=== PATIENT | male | born 1960 | race Caucasian/White ===

== ENCOUNTER 2020-04-28 14:30 | Emergency (ER) | payer OTHER, SELFPAY ==
--- NOTE | ~2020-04-28 | CT_ITS ---
EXAMINATION: CT BRAIN W/O DATE: 04/28/2020 16:52 INDICATION: Status post fall. Trauma to the back of head. TECHNIQUE: Computed tomography (CT) of the head was performed without intravenous contrast. The dose- length product was 681.00 mGy-cm. The mA was adjusted according to patient size. Iterative reconstruc tion technique was employed. COMPARISON: No prior studies for comparison. FINDINGS: Normal brain parenchymal volume for age. Normal gomez-white differentiation. No acute intrac ranial hemorrhage, infarction, mass or mass effect. No ventriculomegaly or midline shift. Midline sagittal images demonstrate a normal corpus callosum, c raniovertebral junction and sella turcica. Basilar cisterns are patent. Paranasal sinuses and mastoids are pneumatized. No depressed skull fractures. IMPRESSION: 1. No acute intracranial abnormality. Reviewed, dictated and finalized at location A.
[2020-04-28 14:47] VITALS: BP 138/80; PULSE 87; RESP 18; TEMP 36.7; O2SAT 99
--- NOTE | 2020-04-28 17:35 | ED.HEATRA ---
HPI - Head Injury General Chief complaint: Head Injury Stated complaint: fall/head injury Time Seen by Provider: 04/28/20 15:59 Source: patient Mode of arrival: ambulatory Limitations: no limitations History of Present Illness HPI Narrative: Patient presents for his examination after falling while at work and in the posterior aspect of his head at approximately 1 AM. Patient states that after falling he felt dazed for a bit but then was able to get up and continue with his day. Patient states that he then went home and slept for most of the day. Patient states when he woke up this morning he had pain headache but felt very fuzzy in his thinking and felt a sensation that he cannot describe in the posterior aspect appreciated. Patient called his job and was told that he needed to come to the emergency department for head examination to make sure that he did not have any serious injury. Patient states that he has is very light sensitive but denies changes to his vision. Patient states initially he did feel some nausea but he has not had any vomiting. He also denies any bleeding from his orifices. Related Data Home Medications Medication Instructions Recorded Confirmed albuterol sulfate [ProAir HFA] 90 mcg INHALATION 04/28/20 gabapentin 600 mg PO 04/28/20 rosuvastatin 5 mg PO 04/28/20 rosuvastatin [Crestor] 5 mg PO 04/28/20 Allergies Allergy/AdvReac Type Severity Reaction Status Date / Time No Known Allergies Allergy Verified 04/28/20 14:50 Review of Systems Review of Systems: Narrative: CONSTITUTIONAL: Denies fever, chills, or sweats. EYES: Denies visual changes, redness, or discharge. ENT: Denies rhinorrhea, congestion, sore throat, or otalgia. CARDIOVASCULAR: Denies chest pain, palpitations, or edema. RESPIRATORY: Denies cough or dyspnea. GASTROINTESTINAL: Denies abdominal pain, nausea, vomiting, or diarrhea. GENITOURINARY: Denies dysuria or hematuria. SKIN: Denies rash or itching. MUSCULOSKELETAL: Denies back pain, joint pain, or myalgia. NEUROLOGIC: Reports headache and photophobia, denies numbness, dizziness, or weakness. PSYCHIATRIC: Denies anxiety or depression. [facility] Past Medical History Medical History (Updated 04/28/20 @ 17:42 by Marika Zabala PA-C) Hypercholesterolemia Neuropathy Social History Social History Smoking status: Never smoker Alcohol intake: never Exam Narrative: Exam Narrative: GENERAL: Well-appearing, well-nourished, and in no acute distress. HEAD: Normocephalic, atraumatic. EYES: PERRLA and EOMI. no hyphema ENT: Nares clear, no rhinorrhea or epistaxis. Mucous membranes moist. Oropharynx without tonsillar hypertrophy exudate or other lesions. Bilateral TMs pearly gomez nonbulging no hemotympanum NECK: Supple. No adenopathy or masses. CHEST: Clear to auscultation. No respiratory distress. No wheezes rales or rhonchi HEART: Regular rate and rhythm. EXTREMITIES: Normal range of motion. No edema. SKIN: Warm, dry, no rash. NEURO: No focal deficits. Alert and oriented x3. PSYCH: Normal mood and affect. Course Vital Signs Vital signs: Vital Signs Temperature 98.1 F 04/28/20 14:47 Pulse Rate 87 04/28/20 14:47 Respiratory Rate 18 04/28/20 14:47 Blood Pressure 138/80 04/28/20 14:47 Pulse Oximetry 99 04/28/20 14:47 Temperature 98.1 F 04/28/20 14:47 Pulse Rate 65 04/28/20 17:59 Respiratory Rate 18 04/28/20 17:59 Blood Pressure 114/78 04/28/20 17:59 Pulse Oximetry 97 04/28/20 17:59 MDM - Head Injury MDM Narrative Medical decision making narrative: Discussed with patient that since it has been over 36 hours since his injury his symptoms are likely result of concussion. Patient is concerned for further etiology and would like to have CT scan to rule out. Discussed risk of radiation exposure and patient understands and would like to proceed with CT head. CT head negative. Patient discussed head precautions, the need to follow-up
[2020-04-28 17:59] VITALS: BP 114/78; PULSE 65; RESP 18; O2SAT 97
== END 2020-04-28 18:01 | disposition home or self-care (01) ==
PROVIDERS: Emergency Provider Emergency Medicine; PCP Family Medicine
DX: S06.0X0A Concussion without loss of consciousness, initial encounter (principal); E78.00 Pure hypercholesterolemia, unspecified; G62.9 Polyneuropathy, unspecified; W19.XXXA Unspecified fall, initial encounter
CPT/HCPCS: 70450; 99284

== ENCOUNTER 2020-05-25 14:25 | Emergency (ER) | payer OTHER, SELFPAY ==
--- NOTE | ~2020-05-25 | CT_ITS ---
EXAMINATION: CT abdomen pelvis w con DATE: 05/25/2020 16:14 INDICATION: Nausea, vomiting and chills TECHNIQUE: Computed tomography (CT) of the abdomen and pelvis was performed with 100 cc Omnipaque 350 intravenous contrast. The dose-length product was 1548.91 mGy-cm. Automated exposure control and ite rative reconstruction technique were employed. COMPARISON: CT dated 03/10/2013. FINDINGS: Lung bases unremarkable. Heart size normal. No significant pleural or pericardial effusion. Fatty infiltration of the liver. The spleen, pancreas, right adrenal gland are unremarkable. Stable 2 .3 cm right adrenal mass, likely benign adenoma. Gallbladder is present. There are nonobstructing meka ateral renal stones. There are small subcentimeter hypodensities of both kidneys, most likely cysts. There is a 7 mm distal right ureteral stone with mild right hydronephrosis. Bladder wall is mildly pr ominent, although not well distended. Nonobstructive bowel gas pattern. Normal appendix. No abnormal pelvic masses or fluid collections. Prostate gland mildly prominent. IMPRESSION: 1. 7 mm distal right ureteral stone with mild hydronephrosis. 2: Nonobstructing bilateral nephrolithiasis. 3: Mildly thickened bladder wall which may be due to underdistention, outlet obstruction or cystitis . Reviewed, dictated and finalized at location A. IMPRESSION: 1. 7 mm distal right ureteral stone with mild hydronephrosis. 2: Nonobstructing bilateral nephrolithiasis. 3: Mildly thickened bladder wall which may be due to underdistention, outlet o bstruction or cystitis.
[2020-05-25 15:14] VITALS: BP 133/82; PULSE 104; RESP 14; TEMP 37.1; O2SAT 100
[2020-05-25 15:33] LABS: Basophils Percent Auto 0.2 % (0.2-1.2); Eosinophils Absolute Auto 0.1 K/mm3 (0-0.3); Eosinophils Percent Auto 0.3 % (0-4.4); Hematocrit 44.7 % (42.0-52.0); Hemoglobin 14.9 g/dL (14.0-18.0); Immature Granulocyte Absolute 0.06 K/mm3 (0.00-0.031); Immature Granulocyte Percent A 0.4 % (0-0.5); Lymphocytes Absolute Auto 0.83 K/mm3 (0.9-3.2); Lymphocytes Percent Auto 4.9 % (18.3-44.2); Mean Corpuscular HGB Conc 33.3 g/dl (32-36); Mean Corpuscular Hemoglobin 30.4 pg (26-34); Mean Corpuscular Volume 91.2 fl (80-100); Mean Platelet Volume 9.5 fl (7.4-10.4); Neutrophils Absolute Auto 15.1 K/mm3 (1.3-6.7); Neutrophils Percent Auto 88.2 % (45.5-73.1); Platelet Count Result 259 k/mm3 (150-375); White Blood Count 17.1 K/mm3 (4.5-10.0)
[2020-05-25 15:45] LABS: Alanine Aminotransferase 42 U/L (4-50); Albumin Level 5.2 g/dL (3.5-5.1); Alkaline Phosphatase 79 U/L (38-126); Anion Gap 13 mmol/L (8-16); Aspartate Amino Transferase 33 U/L (17-59); Blood Urea Nitrogen 15 mg/dL (9-20); Calcium 9.9 mg/dL (8.4-10.2); Carbon Dioxide 26 mmol/L (22-30); Chloride 100 mmol/L (98-107); Estimated CRCL calculation 99 ml/min; Estimated Glomerular Filt Rate > 60; Glucose 98 mg/dL (75-110); Lipase 247 U/L (23-300); Potassium 4.1 mmol/L (3.4-5.0); Sodium 139 mmol/L (137-145)
[2020-05-25] MEDS: ONDANSETRON INJ 4 MG/2 ML VIAL IV PUSH (16:04)
[2020-05-25 16:36] LABS: Add Urine Microscopic? NO; Appearance Urine Clear (Clear); Bilirubin Urine Negative (Negative); Blood Urine Negative (Negative); Color Urine Yellow (Yellow); Glucose Urine UA Negative (Negative); Ketones Urine Negative (Negative); Leukocyte Esterase Ur Negative LEU/UL (Negative); Mucus Urine Rare /lpf; Nitrate Urine Negative (Negative); Protein Urine Negative (Negative); Specific Grav Ur 1.017 (1.001-1.035); Urobilinogen Urine Negative mg/dL (<2.0); WBC Urine 0-3 /hpf
--- NOTE | 2020-05-25 16:44 | ED.NAVMDI ---
HPI - Nausea/Vomiting/Diarrhea General Chief complaint: Nausea/Vomiting/Diarrhea Stated complaint: Im sick, I want tested for COVID Time Seen by Provider: 05/25/20 15:37 Source: patient Mode of arrival: ambulatory Limitations: no limitations History of Present Illness HPI Narrative: This is a 59 year old male that presents to the ER for episode of vomiting today. Reports an episode of diarrhea yesterday. Reports today he feels generally unwell and had an episode of vomiting. Reports some vague crampy abdominal pain. Denies fever, dysuria, hematuria. Related Data Home Medications Medication Instructions Recorded Confirmed albuterol sulfate [ProAir HFA] 90 mcg INHALATION 04/28/20 gabapentin 600 mg PO 04/28/20 rosuvastatin 5 mg PO 04/28/20 rosuvastatin [Crestor] 5 mg PO 04/28/20 Allergies Allergy/AdvReac Type Severity Reaction Status Date / Time No Known Allergies Allergy Verified 05/25/20 15:34 Review of Systems Review of Systems: Narrative: CONSTITUTIONAL: Denies fever GASTROINTESTINAL: Reports abdominal pain, nausea, vomiting, and diarrhea. GENITOURINARY: Denies dysuria or hematuria. All systems reviewed & are unremarkable except as noted in HPI and below PMFSH Past Medical History Medical History (Updated 05/25/20 @ 17:00 by Carole Viera PA-C) Hypercholesterolemia Neuropathy Social History Social History Smoking status: Never smoker Alcohol intake: never Gender identity (if verbalized by the patient): Male Exam Narrative: Exam Narrative: GENERAL: Well-appearing, well-nourished, and in no acute distress. HEAD: Normocephalic, atraumatic. EYES: EOMI. CHEST: Clear to auscultation. No respiratory distress. No wheezes rales or rhonchi HEART: Regular rate and rhythm. No murmur heard. Normal peripheral pulses. ABDOMEN: Soft, nontender, nondistended, normal active bowel sounds. EXTREMITIES: Normal range of motion. No edema. SKIN: Warm, dry, no rash. NEURO: No focal deficits. Alert and oriented x3. PSYCH: Normal mood and affect Course Consultations Consultation #1: Spoke with urology, Dr. Angel about workup who would like patient to be given a dose of Toradol and sent home on Flomax. Date: 05/25/20 Time: 19:13 Vital Signs Vital signs: Vital Signs Temperature 98.7 F 05/25/20 15:14 Pulse Rate 104 H 05/25/20 15:14 Respiratory Rate 14 05/25/20 15:14 Blood Pressure 133/82 05/25/20 15:14 Pulse Oximetry 100 05/25/20 15:14 Temperature 98.7 F 05/25/20 15:14 Pulse Rate 93 05/25/20 18:51 Respiratory Rate 20 05/25/20 18:51 Blood Pressure 123/82 05/25/20 18:51 Pulse Oximetry 98 05/25/20 18:51 MDM - Nausea/Vomiting/Diarrhea MDM Narrative Medical decision making narrative: Patient presents to the emergency department for vomiting and abdominal discomfort. He is afebrile and nontoxic-appearing. Mildly tachycardic upon arrival, this improved without intervention. CBC with leukocytosis to 7.1. Lactic acid is normal. Kidney function is normal. UA with 3-5 red blood cells, no evidence of infection. CT scan of the abdomen and pelvis shows a 7 mm distal right ureteral stone with mild hydronephrosis. Patient was updated on case findings. Spoke with urology, Dr. Angel about workup who would like patient to be given a dose of Toradol and sent home on Flomax. He will follow-up with urology outpatient. Patient is stable and felt appropriate for further outpatient evaluation. He is to follow-up with urology. He was given warnings to return to the ER Lab Data Attestation: I reviewed the patient's lab results. Result diagrams: 05/25/20 15:26 05/25/20 15:26 Labs: Lab Results 05/25/20 05/25/20 05/25/20 Range/Units 15:26 15:26 16:00 WBC 17.1 H (4.5-10.0) K/mm3 RBC 4.90 (4.6-6.20) M/mm3 Hgb 14.9 (14.0-18.0) g/dL Hct 44.7 (42.0-52.0) % MCV 91.2 (80-100) fl MCH 30.4 (26-34) pg MCHC 33.3 (32-36) g/d
[2020-05-25 17:26] VITALS: BP 137/93; PULSE 100; RESP 20; O2SAT 95
[2020-05-25 17:41] LABS: Lactic Acid Reflex 1.8 mmol/L (0.7-2.1)
[2020-05-25 18:51] VITALS: BP 123/82; PULSE 93; RESP 20; O2SAT 98
[2020-05-25] MEDS: KETOROLAC 15 MG/ML VIAL (*BKC) IV PUSH (19:22)
[2020-05-25 19:26] VITALS: BP 124/88; PULSE 90; RESP 20; O2SAT 97
== END 2020-05-25 19:27 | disposition home or self-care (01) ==
PROVIDERS: Physician Assistant; Emergency Provider Family Medicine; PCP Family Medicine
DX: N13.2 Hydronephrosis with renal and ureteral calculous obstruction (principal); E78.00 Pure hypercholesterolemia, unspecified; G62.9 Polyneuropathy, unspecified
CPT/HCPCS: 36415; 74177; 80053; 81003; 83605; 83690; 85025; 96374; 96375; 99284; J1885; J2405; Q9967

== ENCOUNTER 2021-03-08 21:47 | Emergency (ER) | payer OTHER, SELFPAY ==
--- NOTE | ~2021-03-08 | XR_ITS ---
EXAMINATION: XR knee RT 3V EXAM DATE: 03/08/2021 22:30 INDICATION: Initial encounter following injury, with pain of the right knee. TECHNIQUE: Three projections of the right knee. There is no prior study for comparison. FINDINGS: No evidence osteochondral defect or joint body in the right knee joint. There are no acu te fractures identified. There is large amount of anterior soft tissue swelling anteriorly. Additiona lly, focal contained appearing region anterior to the patella measuring up to about 3 cm in thickness which could be hematoma within a bursa or the subcutaneous fat. No evidence of joint effusion. There is overall moderate primary osteoarthritis. Patella has normal position. IMPRESSION: 1. No acute fracture. 2. Severe anterior swelling, likely hematoma. 3. Generalized subcutaneous edema anteriorly. Reviewed, dictated and finalized at location A.
[2021-03-08 21:51] VITALS: BP 118/66; PULSE 90; RESP 20; TEMP 36.9; O2SAT 97
--- NOTE | 2021-03-08 22:20 | ED.LOWEXIN ---
HPI - Extremity Injury (Lower) General Chief Complaint: Extremity Injury, Lower Stated Complaint: right knee pain Time Seen by Provider: 03/08/21 22:08 History of Present Illness HPI Narrative: 60 yo male presnets to the ED for right knee pain. He slipped and fell down 3 stairs. He struck the lateral portion of the right knee. He had minimal pain at first and his knee felt normal. Since that time the knee has become very swollen and he has significantly reduced ROM. He denies any additional pain or injury. Related Data Home Medications Medication Instructions Recorded Confirmed albuterol sulfate [ProAir HFA] 90 mcg INHALATION 04/28/20 gabapentin 600 mg PO 04/28/20 rosuvastatin 5 mg PO 04/28/20 rosuvastatin [Crestor] 5 mg PO 04/28/20 Allergies Allergy/AdvReac Type Severity Reaction Status Date / Time No Known Allergies Allergy Verified 05/25/20 15:34 Review of Systems Review of Systems: All systems reviewed & are unremarkable except as noted in HPI and below Constitutional: Constitutional: Denies fever(s) Cardiovascular: Cardiovascular: Denies chest pain Musculoskeletal: Musculoskeletal: Denies back pain Neurologic: Denies headache(s), Denies numbness and Denies weakness PMFSH Past Medical History Medical History Hypercholesterolemia Neuropathy Social History Social History Smoking status: Never smoker Alcohol intake: never Gender identity (if verbalized by the patient): Male Exam Const: General: healthy appearing, no acute distress and alert Orientation/consciousness: patient oriented x3 HENMT: Head: normal to inspection Cardio: Other: 2+ right DP Skin: General skin exam: normal color Neuro: General: patient oriented x3, moves all extremities, no focal motor deficits and CN's II-XI intact bilaterally Speech: normal speech Extrem: Other: Right knee swelling. No deformity. Mild tenderness. Normal color Course Vital Signs Vital signs: Vital Signs Temperature 36.9 C 03/08/21 21:51 Pulse Rate 90 03/08/21 21:51 Respiratory Rate 20 03/08/21 21:51 Blood Pressure 118/66 03/08/21 21:51 Pulse Oximetry 97 03/08/21 21:51 Temperature 36.9 C 03/08/21 21:51 Pulse Rate 90 03/08/21 21:51 Respiratory Rate 20 03/08/21 21:51 Blood Pressure 118/66 03/08/21 21:51 Pulse Oximetry 97 03/08/21 21:51 MDM - Extremity Injury (Lower) MDM Narrative Medical decision making narrative: He appears to have a large fluid collection outside of the knee joint. Probably hematoma. No acute knee injury. Imaging Data My impression: no fracture on knee x-ray Discharge Plan Discharge Clinical Impression: Contusion of knee, right Qualifiers: Encounter type: initial encounter Qualified Code(s): S80.01XA - Contusion of right knee, initial encounter Patient Disposition: Home, Self-Care Condition: Stable Instructions: Knee Pain (ED), Hematoma (ED) Prescriptions: No Action gabapentin 600 mg tablet 600 mg PO RF: 0 albuterol sulfate [ProAir HFA] 90 mcg/actuation HFA aerosol inhaler 90 mcg INHALATION RF: 0 rosuvastatin [Crestor] 5 mg tablet 5 mg PO RF: 0 rosuvastatin 5 mg tablet 5 mg PO RF: 0 tamsulosin 0.4 mg capsule 0.4 mg PO DAILY 7 Days Qty: 7 RF: 0 ketorolac 10 mg tablet 10 mg PO Q6H PRN (Reason: pain) 5 Days Qty: 20 RF: 0 Follow-up/Referrals: Harrison Nguyễn MD [Primary Care Provider] -
== END 2021-03-08 23:31 | disposition home or self-care (01) ==
PROVIDERS: Emergency Provider Emergency Medicine; PCP Family Medicine
DX: S80.01XA Contusion of right knee, initial encounter (principal); E78.00 Pure hypercholesterolemia, unspecified; G62.9 Polyneuropathy, unspecified; W10.9XXA Fall (on) (from) unspecified stairs and steps, initial encounter
CPT/HCPCS: 73562; 99283

== ENCOUNTER 2024-01-27 08:44 | Outpatient (CLI) | payer OTHER, MEDICARE, SELFPAY ==
--- NOTE | 2024-02-08 17:21 | WPDHOMESLEEP ---
Sleep Study - Home Unattended Date of Study: 01/27/24 Ordering Provider: GLADYS Ricketts Interpreting Provider: Coreen Andres, DO Home Sleep Study Type: Watch PAT Height: 1.91 m Weight: 127.006 kg Body Mass Index: 34.9 Neck Circumference (inches): 18.5 [place]: 13 Reason for Sleep Study Snoring, daytime hypersomnia Sleep History The patient is a 63-year-old male with asthma, hyperlipidemia, osteoarthritis, peripheral neuropathy, erectile dysfunction and obesity that had a sleep study ordered by his primary care for evaluation of sleep apnea. The patient rarely awakens from sleep short of breath. He denies awakening at night with heartburn, belching or cough. He frequently snores but it is never loud enough that others complain. He frequently has trouble sleeping when he has a cold. He rarely wakes up gasping for air throughout the night. He rarely has breathing problems at night observed by himself or others. He denies sweating excessively at night. He denies having heart palpitations or irregular heartbeats during the night. He occasionally falls asleep during the day but rarely falls asleep while driving. He denies sleep paralysis, cataplexy and hypnagogic / hypnopompic hallucinations. He denies having trouble at school or work due to sleepiness. He denies feeling afraid of going to sleep. He denies having nightmares. He rarely remembers his dreams. He occasionally has thoughts racing through his mind. He denies feeling sad or depressed. He rarely has anxiety. He denies having muscular tension. He occasionally notices parts of his body jerk. He denies kicking during the night. He frequently has crawling and aching feelings in his legs and occasionally has leg pain during the night. He denies grinding his teeth during sleep and denies awakening with morning jaw pain. He is frequently bothered by pain during the day and occasionally awakened by pain during the night. He occasionally wakes up feeling stiff in the morning. He denies waking up with sore or achy muscles. He denies waking up with pain in the neck, spine and other joints. He goes to bed at 10:00 p.m. on both weekdays and weekends. It takes him 15 minutes to fall asleep. He wakes up 1-3 times throughout the night to urinate and is able to fall back asleep within 5 minutes. He wakes up at 6:00 a.m. on weekdays. He wakes up between 6-8 a.m. on the weekends. He typically gets 6-7 hours of sleep per night. He does not stay in bed after waking up in the morning. He currently lives with his . He will consume caffeinated beverages within 2 hours of bedtime. He denies engaging in physical exercise before bedtime. He will watch television before falling asleep. He denies taking naps in the afternoon or the evening. He consumes 3-6 caffeinated beverages per day. He denies tobacco and recreational drug use. He occasionally consumes alcoholic beverages. [facility] Past Medical History Medical History Asthma, exercise induced Hypercholesterolemia Morphea Osteoarthritis Peripheral neuropathic pain Surgical History Surgical History Hx of palate surgery excision polyp left posterior 04/04 Family History Family History Father Alcoholism Mother Diabetes mellitus Dementia Grandparent Diabetes mellitus Mental illness in member of household Social History Social History Smoking status: Never smoker Alcohol intake: current Drinks per week: 0 Alcohol use details: social Substance use: never Lack of Transportation: No Lack of Food: Never True Current Housing: I Have Housing Concerned About Future Housing: No Difficulty Paying Gas/Electric Bills: No Difficulty Paying for Meds: No Cur
[2024-02-08 17:24] VITALS: BMI 34.9
== END 2024-01-28 07:30 | disposition home or self-care (01) ==
PROVIDERS: PCP Family Medicine; Visit Provider Physician Assistant
DX: G47.19 Other hypersomnia (principal); G47.33 Obstructive sleep apnea (adult) (pediatric); R06.83 Snoring
CPT/HCPCS: 95800

== ENCOUNTER → 2024-02-22 08:16 | Outpatient (CLI) | payer OTHER, MEDICARE, SELFPAY ==
--- NOTE | 2024-03-03 16:07 | WPDSLEEPSTUD ---
Sleep Study Date of Study: 02/22/24 Ordering Provider: GLADYS Ricketts Interpreting Physician: Adina Carter MD Sleep Study Type: Split Polysomnogram Height: 1.88 m Weight: 127.006 kg Body Mass Index: 35.9 Neck Circumference (inches): 19 [place]: 13 Reason for Sleep Study Hypersomnolence Sleep History Sonido Devi is a 63-year-old male with asthma, hyperlipidemia, osteoarthritis, peripheral neuropathy, and erectile dysfunction who had a home sleep test using WatchPAt on January 27, 2024 with a low AHI 4.7, however a high RDI and desaturation to 87%. He returns for a split night study to evaluate suspected obstructive sleep apnea. He rarely awakens from sleep short of breath. He denies awakening at night with heartburn, belching or coughing. He frequently snores but it is never loud enough that others complain. He frequently has trouble sleeping when he has a cold. He rarely wakes up gasping for air at night. He rarely has breathing problems at night observed by others. He denies sweating excessively at night. He denies having heart palpitations or irregular heartbeats during the night. He occasionally falls asleep during the day, and rarely falls asleep while driving. He denies feeling paralyzed on sleep onset or upon awakening. He does not have muscle loss with strong emotion. He does not have vivid dreamlike visions on falling asleep or upon awakening. He does not have daytime difficulties at work due to excessive sleepiness. He is not afraid to go to sleep. He does not have nightmares. He rarely remembers his dreams. He occasionally has thoughts racing through his mind. He denies feeling sad or depressed. He rarely has anxiety. He denies having muscular tension. He occasionally notices parts of his body jerk. He denies kicking during the night. He frequently has crawling and aching feelings in his legs and occasionally has leg pain during the night. He denies grinding his teeth during sleep, denies waking with morning jaw pain. He is frequently bothered by pain during the day and occasionally is awakened by pain during the night. He occasionally wakes up feeling stiff in the morning. He denies waking up with sore or achy muscles. He denies waking up with pain in the neck, spine and other joints. Normal bedtime is 10:00 p.m., taking 15 minutes to fall asleep. He wakes between 1-3 times during the night to urinate, returns to sleep within 5 minutes. He wakes up at 6:00 a.m. on weekdays. He wakes up between 6-8 a.m. on the weekends. He typically gets 6-7 hours of sleep per night. He consumes caffeinated beverages within 2 hours of bedtime. He denies taking naps in the afternoon or the evening. Habits: Tobacco: none Caffeine: 3-6 caffeinated beverages per day. Alcohol: occasionally consumes alcoholic beverages. Recreational substances: none PMFSH Past Medical History Medical History Asthma, exercise induced Hypercholesterolemia Morphea Obstructive sleep apnea Osteoarthritis Peripheral neuropathic pain Surgical History Surgical History Hx of palate surgery excision polyp left posterior 04/04 Family History Family History Father Alcoholism Mother Diabetes mellitus Dementia Grandparent Diabetes mellitus Mental illness in member of household Social History Social History Smoking status: Never smoker Alcohol intake: current Drinks per week: 0 Alcohol use details: social Substance use: never Lack of Transportation: No Lack of Food: Never True Current Housing: I Have Housing Concerned About Future Housing: No Difficulty Paying Gas/Electric Bills: No Difficulty Paying for Meds: No Currently
[2024-03-06 12:49] VITALS: BMI 35.9
== END ==
PROVIDERS: PCP Family Medicine; Visit Provider Physician Assistant
DX: G47.33 Obstructive sleep apnea (adult) (pediatric) (principal); G25.81 Restless legs syndrome; Z68.35 Body mass index [BMI] 35.0-35.9, adult
CPT/HCPCS: 95811

== ENCOUNTER 2024-07-19 10:48 | Outpatient (CLI) | payer OTHER, MEDICARE, SELFPAY ==
[2024-07-19 11:44] LABS: Alanine Aminotransferase 28 U/L (6-50); Albumin Level 4.7 g/dL (3.5-5.1); Alkaline Phosphatase 58 U/L (38-126); Anion Gap 10 mmol/L (4-12); Aspartate Amino Transferase 26 U/L (17-59); Bilirubin,Total 1.2 mg/dL (0.2-1.3); Blood Urea Nitrogen 23 mg/dL (9-20); Calcium 9.1 mg/dL (8.4-10.2); Carbon Dioxide 25 mmol/L (22-30); Chloride 105 mmol/L (98-107); Cholesterol 139 mg/dL (0-200); Estimated Glomerular Filt Rate > 60; Glucose 95 mg/dL (65-110); HDL Direct 36 mg/dL; Potassium 4.1 mmol/L (3.4-5.0); Sodium 140 mmol/L (137-145); Triglycerides 131 mg/dL (<150)
[2024-07-19 11:55] LABS: LDL Cholesterol Direct 65 mg/dL
== END 2024-07-19 10:49 | disposition home or self-care (01) ==
PROVIDERS: PCP Family Medicine; Visit Provider Family Medicine
DX: E78.00 Pure hypercholesterolemia, unspecified (principal)
CPT/HCPCS: 36415; 80053; 80061

== ENCOUNTER 2024-08-31 08:56 | Outpatient (CLI) | payer OTHER, MEDICARE, SELFPAY ==
--- NOTE | 2024-09-04 21:29 | WPDPFTINT ---
PFT Procedure Performed PFT Procedure Performed Spirometry w/o Bronchodil PFT Interpretation DOS: 08/31/2024 REQUESTING: Harrison Nguyễn MD REASON FOR TESTING: Mild asthma PULMONARY FUNCTION TESTS Results are reliable and reproducible. Repeatability of spirometry FEV1 maneuver is Grade A. Spirometry: The FEV1 is 2.99 L, 75%, normal. The pre-bronchodilator FVC is 4.50 L, 85%, normal. The FEV1/FVC ratio is 67%, normal. Flow volume loop: The flow volume loop normal. IMPRESSION: Normal spirometry, no bronchodilator administered. No prior studies to compare. Adina Carter MD
== END 2024-08-31 08:57 | disposition home or self-care (01) ==
LOC: ANHPFT 08:58
PROVIDERS: PCP Family Medicine; Visit Provider Family Medicine
DX: J45.20 Mild intermittent asthma, uncomplicated (principal)
CPT/HCPCS: 94375

== ENCOUNTER 2024-12-18 16:20 | Outpatient (CLI) | payer OTHER, MEDICARE, SELFPAY ==
--- NOTE | ~2024-12-18 | XR_ITS ---
EXAM: XR knee RT 3V, XR patella RT DATE: 12/18/2024 17:09 HISTORY: S89.91XA - Unspecified injury of right lower leg, initial... . COMPARISON: 03/08/2021. FINDINGS: Normal mineralization. Vertically oriented, nondisplaced patellar fracture, seen best in t he AP view of the knee, likely obscured in the sunrise patellar view due to slight obliquity of the f racture line. No lytic or blastic lesion. Tricompartmental knee osteoarthritis, severe in the medial compartment. No erosion or periosteal change. Moderate volume knee joint fluid. Anterior soft tissue swelling. IMPRESSION: Vertically oriented, nondisplaced right patellar fracture. Moderate right knee joint effu yashira. Reviewed, dictated and finalized at location K. IMPRESSION: Vertically oriented, nondisplaced right patellar fracture. Moderate right knee joint effusion.
--- OUTSIDE RECORDS SUMMARY | 2024-12-18 18:38 | XMS_ITS | Continuity of Care Document ---
Author Name [facility] Organization [facility] Care Team Providers Care Orchestra Director Name Role Phone [facility] Unavailable Unavailable Problems Combined list of problems from Department of Defense and Veterans Affairs facilities. It does not include entries that were removed or entered in error. Problem Status Onset Date Problem Type Date of Resolution Comments Source Epidermal nevus of trunk Active Condition [facility] Exposure to potentially hazardous substance Active Condition [facility] Hyperlipidemia Active Condition [facility] Hyperlipidemia * (ICD-9-CM 272.4) Active Condition [facility] Medical examinations/report s status Active Condition [facility] Mild intermittent asthma Active Condition [facility] [place]phea Active Condition [facility] [place] * (ICD-9-CM 701.0) Active Condition [facility] Obesity Active Condition [facility] Osteoarthritis of knee Active Condition [facility] Pain in left foot Active Condition [facility] Pain in right knee Active Condition [facility] Pain of bilateral knee joints Active Condition [facility] Peripheral neuropathy Active Condition [facility] Rash Active Condition [facility] Diagnosis: ICD-10-CM E78.5 Hyperlipidemia, unspecified Active Diagnosis 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 Diagnosis: ICD-10-CM M17.11 Unilateral primary osteoarthritis, right knee Active Diagnosis [facility] Medications Combined list of outpatient medications from Department of Defense and Veterans Affairs facilities.Medications provided include 1) outpatient medications from the last 15 months, and 2) patient-reported medications. Medication Details Route Status Patient Instructions Prescription Expires Prescription Number Last Dispense Date Ordering Provider Order Date Order Qty Source albuterol 90 mcg inhaler [8.5g] See Instruct miguelina Inhale, # 8.5 g, 1 total refill(s ), Hard Stop Inhala tion (breat he in) Ordered 09/05/2025 4 2023 8.5 Ambulat ory Pharmac y albuterol 90 mcg/inh inhalation aerosol INHALE 1 PUFF EVERY 4-6 HOURS NEEDED FOR SHORTNES S OF BREATH OR WHEEZING , # 8.5 g, 1 total refill(s ), Acute Complet ed 01/28/2024 3 2023 8.5 Ambulat ory Pharmac y ALBUTEROL SO4 90MCG/ACTUA T (CFC-F) INHL,ORAL,8 .5GM INHALE 2 PUFFS BY ORAL INHALATI ON FOUR TIMES A DAY RESPIR ATORY (INHAL ATION) ACTIVE RAY AMAYA N 2019 [facility] budesonide- formoterol 160-4.5 mcg inhaler (10.2g) See Instruct miguelina Inhale, # 10.2 g, 2 total refill(s ), Hard Stop Inhala tion (breat he in) Ordered 01/17/2025 4 2023 10.2 Ambulat ory Pharmac y CALCIUM CARBONATE 500MG TAB,CHEWABL E CHEW AND SWALLOW TWO TABLETS BY MOUTH EVERY MONTH ORAL ACTIVE ISREAL GUILLAUME I 2006 [facility] GABAPENTIN 300MG CAP TAKE 2 CAPSULES BY MOUTH THREE TIMES A DAY ORAL ACTIVE RAY AMAYA CARMEN N 2020 [facility] gabapentin 600 mg tablet See Instruct ions, # 270 EA, 1 total refill(s ), Acute Complet ed 12/27/2023 3 2023 270.0 Ambulat ory Pharmac y gabapentin 600 mg tablet 600 mg, Oral, TID, # 270 EA, 1 total refill(s ), Hard Stop Oral (given by mouth) Discont inued 07/12/2024 4 2023 270.0 Ambulat ory Pharmac y gabapentin 800 mg tablet 800 mg, Oral, TID, # 270 EA, 1 total refill(s ), Hard Stop Oral (given by mouth) Ordered 07/07/2025 5 2024 270.0 Ambulat ory Pharmac y gabapentin 800 mg tablet 800 mg, Oral, TID, # 270 EA, 1 total refill(s ), Hard Stop Oral (given by mouth) Discont inued 07/12/2024 4 2023 270.0 Ambulat ory Pharmac y IBUPROFEN 200MG TAB TAKE ONE TABLET BY MOUTH FOUR TIMES A DAY NEEDED ORAL ACTIVE ISREAL GUILLAUME I 2006 [facility] N rosuvastati n 5 mg tablet 5 mg, Oral, Daily, # 90 EA, 1 total refill(s ), Hard Stop Oral (given by mouth) Discont inued 01/19/2024 4 2023 90.0 Ambulat ory Pharmac y rosuvastati n 5 mg tablet 5 mg, Oral, Daily, # 90 EA, 1 total refill(s ), Hard Stop Oral (given by mouth) Ordered 07/07/2025 4 2023 90.0 Ambulat ory Pharmac y rosuvastati n 5 mg tablet 5 mg, Oral, Daily, # 90 EA, 1 total refill(s ), Hard Stop Oral (given by mouth) Discont inued 07/12/2024 4 2023 90.0 Ambulat ory Pharmac y rosuvastati n 5 mg tablet See dose instruct ions in comments , # 90 EA, 1 total refill(s ), Acute Complet ed 12/27/2023 3 2023 90.0 Ambulat ory Pharmac y ROSUVASTATI N CA 10MG TAB TAKE ONE-HALF TABLET BY MOUTH EVERY EVENING ORAL ACTIVE RAY AMAYA [address] [facility] N triamcinolo ne 0.1% ointment [15g] See Instruct ions, # 60 g, 1 total refill(s ), Hard Stop Complet ed 10/21/2024 4 2024 60.0 Ambulat ory Pharmac y Allergies, Adverse Reactions, Alerts Combined list of allergies from Department of Defense and Veterans Affairs facilities. It does not include entries that were removed or entered in error. Substance Category Reaction Severity Reaction type Status Date Reported Comments Source SIMVASTATIN Propensity to adverse reactions to drug (finding) Neuropathy MODERATE active [address] [facility] simvastatin Propensity to adverse reactions to drug Neuropathy Active 7 simvastati n caused neuropathy Unknown Organiza tion Immunizations Combined list of available immunizations from the Department of Defense and Veterans Affairs facilities. Immunization Series Date Given Administered By Site Reaction Lot Number CVX Code Drug Reservation Manager Status Comments Source COVID-19 (Upshot), MRNA, LNP-S, PF, 30 MCG/0.3 ML DOSE 3 2020 208 complet ed PFR; [id number]; 2 [facility] COVID-19 (Upshot), MRNA, LNP-S, PF, 30 MCG/0.3 ML DOSE 2 2020 208 complet ed PFR; [id number]; [address] [facility] COVID-19 (Upshot), MRNA, LNP-S, PF, 30 MCG/0.3 ML DOSE 1 2020 208 complet ed PFR; [id number]; 1 [facility] INFLUENZA, UNSPECIFIED FORMULATION 2019 88 complet ed [facility] zoster vaccine, inactivated 2019 zzLef t Arm [id number] 187 [employer] complet ed zoster vaccine, inactivat ed 11/14/19 Given Ambulat ory Pharmac y zoster vaccine, inactivated 2019 [id number] [employer] complet ed zoster vaccine, inactivat ed 11/14/19 Given Ambulat ory Pharmac y PNEUMOCOCCAL POLYSACCHARID E [id number] 2019 33 complet ed [facility] zoster vaccine, inactivated 2018 zzLef t Arm [id number] 187 [employer] complet ed zoster vaccine, inactivat ed 08/22/19 Given Ambulat ory Pharmac y INFLUENZA, UNSPECIFIED FORMULATION 2018 88 complet ed [facility] INFLUENZA, UNSPECIFIED FORMULATION 2016 88 complet ed [facility] zoster vaccine live 2016 zzLef t Arm [id number] [employer] complet ed zoster vaccine live 02/24/17 Given Ambulat ory Pharmac y zoster vaccine live 2016 [id number] [employer] complet ed zoster vaccine live 02/24/17 Given Ambulat ory Pharmac y TDAP 2016 115 complet ed Left Deltoid [facility] INFLUENZA, UNSPECIFIED FORMULATION 2015 88 complet ed [facility] Results Combined list of recent chemistry, hematology and other laboratory results from Department of Defense and Veterans Affairs, ranging from 15 months to all on record, depending upon the facility. Order Name Results Value Reference Range Date Interpretation Specimen Comments Source URINALYSI S (STL-PB) COLOR OF URINE Light- Yellow 11/22 Specimen Type: URINE No comment entered. Ordering Provider: JES AMAYA Report Released Date/Time: February 17, 2023 04:00 PM Reporting Lab: [facility] [address] [place] [phone] Performing Lab: [facility] [address] [place] [phone] [facility] URINALYSI S (STL-PB) BILIRUBIN.T OTAL [PRESENCE] IN URINE BY TEST STRIP Negati vemg/d L 11/22 Specimen Type: URINE No comment entered. Ordering Provider: JES AMAYA Report Released Date/Time: February 17, 2023 04:00 PM Reporting Lab: [facility] [address] [place] [phone] Performing Lab: [facility] [address] [place] [phone] [facility] URINALYSI S (STL-PB) PH OF URINE BY TEST STRIP 6.0 5.0 - 8.0 11/22 Specimen Type: URINE No comment entered. Ordering Provider: JES AMAYA Report Released Date/Time: February 17, 2023 04:00 PM Reporting Lab: [facility] [address] [place] [phone] Performing Lab: [address] [phone] [facility] URINALYSI S (STL-PB) APPEARANCE OF URINE Clear 11/22 Specimen Type: URINE No comment entered. Ordering Provider: JES AMAYA Report Released Date/Time: February 17, 2023 04:00 PM Reporting Lab: [address] [phone] Performing Lab: [address] [phone] [place] [address] URINALYSI S (STL-PB) NITRITE [PRESENCE] IN URINE BY TEST STRIP Negati vemg/d L 11/22 Specimen Type: URINE No comment entered. Ordering Provider: JES AMAYA Report Released Date/Time: February 17, 2023 04:00 PM Reporting Lab: [address] [phone] Performing Lab: [address] [phone] [facility] URINALYSI S (STL-PB) GLUCOSE [MASS/VOLUM E] IN URINE BY TEST STRIP Normal mg/dL 11/22 Specimen Type: URINE No comment entered. Ordering Provider: JES AMAYA Report Released Date/Time: February 17, 2023 04:00 PM Reporting Lab: [address] [phone] Performing Lab: [address] [phone] [facility] URINALYSI S (STL-PB) PROTEIN [MASS/VOLUM E] IN URINE BY TEST STRIP Negati vemg/d L - 20 11/22 Specimen Type: URINE No comment entered. Ordering Provider: JES AMAYA Report Released Date/Time: February 17, 2023 04:00 PM Reporting Lab: [address] [phone] Performing Lab: [address] [phone] [facility] URINALYSI S (STL-PB) URN.UROBILI NOGEN 2 mg/dL 11/22 H Specimen Type: URINE No comment entered. Ordering Provider: JES AMAYA Report Released Date/Time: February 17, 2023 04:00 PM Reporting Lab: [address] [phone] Performing Lab: [address] [phone] [facility] URINALYSI S (STL-PB) HEMOGLOBIN [MASS/VOLUM E] IN URINE BY TEST STRIP Negati vemg/d L 11/22 Specimen Type: URINE No comment entered. Ordering Provider: JES AMAYA Report Released Date/Time: February 17, 2023 04:00 PM Reporting Lab: [address] [phone] Performing Lab: [address] [phone] [facility] URINALYSI S (STL-PB) KETONES [MASS/VOLUM E] IN URINE BY TEST STRIP Negati vemg/d L 11/22 Specimen Type: URINE No comment entered. Ordering Provider: JES AMAYA Report Released Date/Time: February 17, 2023 04:00 PM Reporting Lab: [address] [phone] Performing Lab: [address] [phone] [facility] URINALYSI S (STL-PB) URN.LEUK.ES T. Negati vemg/d L 11/22 Specimen Type: URINE No comment entered. Ordering Provider: JES AMAYA Report Released Date/Time: February 17, 2023 04:00 PM Reporting Lab: [address] [phone] Performing Lab: [address] URINALYSI S (STL-PB) SPECIFIC GRAVITY OF URINE 1.021 1.005 - 1.029 11/22 Specimen Type: URINE No comment entered. Ordering Provider: JES AMAYA Report Released Date/Time: February 17, 2023 04:00 PM Reporting Lab: [address] [phone] Performing Lab: [place] [address] [place] [address] COMPREHEN SIVE METABOLIC PANEL CREATININE [MASS/VOLUM E] IN SERUM OR PLASMA 1.14 mg/dL 0.7 - 1.3 11/22 Specimen Type: PLASMA Comment: LDL calculation invalid when Triglycerid e exceeds 250 mg/dl Ordering Provider: JES AMAYA Report Released Date/Time: February 17, 2023 04:00 PM Reporting Lab: [address] [phone] Performing Lab: [address] [phone] [place] [address] COMPREHEN SIVE METABOLIC PANEL UREA NITROGEN [MASS/VOLUM E] IN SERUM OR PLASMA 22.4 mg/dL 9.0 - 25.0 11/22 Specimen Type: PLASMA Comment: LDL calculation invalid when Triglycerid e exceeds 250 mg/dl Ordering Provider: JES AMAYA Report Released Date/Time: February 17, 2023 04:00 PM Reporting Lab: [address] [phone] Performing Lab: [facility] [address] [facility] [address] [facility] COMPREHEN SIVE METABOLIC PANEL GLUCOSE [MASS/VOLUM E] IN SERUM OR PLASMA 97 mg/dL 72 - 99 11/22 Specimen Type: PLASMA Comment: LDL calculation invalid when Triglycerid e exceeds 250 mg/dl Ordering Provider: JES AMAYA Report Released Date/Time: February 17, 2023 04:00 PM Reporting Lab: [facility] [address] [facility] [phone] Performing Lab: [facility] [address] [place] [phone] [facility] COMPREHEN SIVE METABOLIC PANEL SODIUM [MOLES/VOLU ME] IN SERUM OR PLASMA 138 meq/L 136 - 145 11/22 Specimen Type: PLASMA Comment: LDL calculation invalid when Triglycerid e exceeds 250 mg/dl Ordering Provider: JES AMAYA Report Released Date/Time: February 17, 2023 04:00 PM Reporting Lab: [facility] [address] [facility] [address] Performing Lab: [facility] [address] [facility] [address] [facility] COMPREHEN SIVE METABOLIC PANEL POTASSIUM [MOLES/VOLU ME] IN SERUM OR PLASMA 3.9 meq/L 3.5 - 5 11/22 Specimen Type: PLASMA Comment: LDL calculation invalid when Triglycerid e exceeds 250 mg/dl Ordering Provider: JES AMAYA Report Released Date/Time: February 17, 2023 04:00 PM Reporting Lab: [facility] [address] [facility] [phone] Performing Lab: [facility] [address] [facility] [address] [facility] COMPREHEN SIVE METABOLIC PANEL CHLORIDE [MOLES/VOLU ME] IN SERUM OR PLASMA 103 meq/L 98 - 107 11/22 Specimen Type: PLASMA Comment: LDL calculation invalid when Triglycerid e exceeds 250 mg/dl Ordering Provider: JES AMAYA Report Released Date/Time: February 17, 2023 04:00 PM Reporting Lab: [facility] [address] [facility] [phone] Performing Lab: [facility] [address] [facility] [address] [facility] COMPREHEN SIVE METABOLIC PANEL CARBON DIOXIDE, TOTAL [MOLES/VOLU ME] IN SERUM OR PLASMA 21 meq/L 22 - 31 11/22 L Specimen Type: PLASMA Comment: LDL calculation invalid when Triglycerid e exceeds 250 mg/dl Ordering Provider: JES AMAYA Report Released Date/Time: February 17, 2023 04:00 PM Reporting Lab: [facility] [address] [facility] [phone] Performing Lab: [facility] [address] [place] [phone] [facility] COMPREHEN SIVE METABOLIC PANEL CALCIUM [MASS/VOLUM E] IN SERUM OR PLASMA 9.4 mg/dL 8.4 - 10.4 11/22 Specimen Type: PLASMA Comment: LDL calculation invalid when Triglycerid e exceeds 250 mg/dl Ordering Provider: JES AMAYA Report Released Date/Time: February 17, 2023 04:00 PM Reporting Lab: [facility] [address] [facility] [phone] Performing Lab: [facility] [address] [facility] [phone] [facility] COMPREHEN SIVE METABOLIC PANEL PROTEIN [MASS/VOLUM E] IN SERUM OR PLASMA 8.5 g/dL 6 - 8.6 11/22 Specimen Type: PLASMA Comment: LDL calculation invalid when Triglycerid e exceeds 250 mg/dl Ordering Provider: JES AMAYA Report Released Date/Time: February 17, 2023 04:00 PM Reporting Lab: [facility] [address] [facility] [phone] Performing Lab: [facility] [address] [facility] [phone] [facility] COMPREHEN SIVE METABOLIC PANEL ALBUMIN [MASS/VOLUM E] IN SERUM OR PLASMA 4.8 g/dL 3.4 - 5 11/22 Specimen Type: PLASMA Comment: LDL calculation invalid when Triglycerid e exceeds 250 mg/dl Ordering Provider: JES AMAYA Report Released Date/Time: February 17, 2023 04:00 PM Reporting Lab: [place] [phone] Performing Lab: [address] COMPREHEN SIVE METABOLIC PANEL BILIRUBIN.T OTAL [MASS/VOLUM E] IN SERUM OR PLASMA 0.5 mg/dL 0.2 - 1.2 11/22 Specimen Type: PLASMA Comment: LDL calculation invalid when Triglycerid e exceeds 250 mg/dl Ordering Provider: JES AMAYA Report Released Date/Time: February 17, 2023 04:00 PM Reporting Lab: [place] [address] Performing Lab: [address] [phone] [place] [address] COMPREHEN SIVE METABOLIC PANEL ALKALINE PHOSPHATASE [ENZYMATIC ACTIVITY/VO LUME] IN SERUM OR PLASMA 67 U/L 40 - 150 11/22 Specimen Type: PLASMA Comment: LDL calculation invalid when Triglycerid e exceeds 250 mg/dl Ordering Provider: JES AMAYA Report Released Date/Time: February 17, 2023 04:00 PM Reporting Lab: [address] [phone] Performing Lab: [address] [phone] [place] [address] COMPREHEN SIVE METABOLIC PANEL ASPARTATE AMINOTRANSF ERASE [ENZYMATIC ACTIVITY/VO LUME] IN SERUM OR PLASMA 23 U/L 5 - 34 11/22 Specimen Type: PLASMA Comment: LDL calculation invalid when Triglycerid e exceeds 250 mg/dl Ordering Provider: JES AMAYA Report Released Date/Time: February 17, 2023 04:00 PM Reporting Lab: [address] Performing Lab: [facility] [address] [place] [phone] [facility] COMPREHEN SIVE METABOLIC PANEL ALANINE AMINOTRANSF ERASE [ENZYMATIC ACTIVITY/VO LUME] IN SERUM OR PLASMA 39 U/L 8 - 40 11/22 Specimen Type: PLASMA Comment: LDL calculation invalid when Triglycerid e exceeds 250 mg/dl Ordering Provider: JES AMAYA Report Released Date/Time: February 17, 2023 04:00 PM Reporting Lab: [facility] [address] [facility] [phone] Performing Lab: [facility] [address] [facility] [phone] [place] [address] COMPREHEN SIVE METABOLIC PANEL GLOMERULAR FILTRATION RATE/1.73 SQ M.PREDICTED [VOLUME RATE/AREA] IN SERUM, PLASMA OR BLOOD BY CREATININE- BASED FORMULA (CKD-EPI 2020) 71.4 60 11/22 Specimen Type: PLASMA Comment: LDL calculation invalid when Triglycerid e exceeds 250 mg/dl Ordering Provider: JES AMAYA Report Released Date/Time: February 17, 2023 04:00 PM Reporting Lab: [facility] [address] [facility] [address] Performing Lab: [facility] [address] [place] [phone] [facility] HGA1C HEMOGLOBIN A1C/HEMOGLO BIN.TOTAL IN BLOOD 6.1 4.0 - 6.0 11/22 H Specimen Type: BLOOD No comment entered. Ordering Provider: JES AMAYA Report Released Date/Time: February 17, 2023 04:00 PM Reporting Lab: [facility] [address] [facility] [address] Performing Lab: [facility] [address] [facility] [address] [facility] LIPID PANEL (STL) CHOLESTEROL [MASS/VOLUM E] IN SERUM OR PLASMA 152 mg/dL 0 - 200 11/22 Specimen Type: PLASMA Comment: LDL calculation invalid when Triglycerid e exceeds 250 mg/dl Ordering Provider: JES AMAYA Report Released Date/Time: February 17, 2023 04:00 PM Reporting Lab: [facility] [address] [facility] [address] Performing Lab: [facility] [address] [place] [phone] [facility] LIPID PANEL (STL) TRIGLYCERID E [MASS/VOLUM E] IN SERUM OR PLASMA 347 mg/dL 0 - 150 11/22 H Specimen Type: PLASMA Comment: LDL calculation invalid when Triglycerid e exceeds 250 mg/dl Ordering Provider: JES AMAYA Report Released Date/Time: February 17, 2023 04:00 PM Reporting Lab: [address] [phone] Performing Lab: [address] [phone] [facility] LIPID PANEL (STL) CHOLESTEROL IN LDL [MASS/VOLUM E] IN SERUM OR PLASMA BY CALCULATION commen tmg/dL 11/22 Specimen Type: PLASMA Comment: LDL calculation invalid when Triglycerid e exceeds 250 mg/dl Ordering Provider: JES AMAYA Report Released Date/Time: February 17, 2023 04:00 PM Reporting Lab: [facility] [address] [place] [phone] Performing Lab: [address] [phone] [facility] LIPID PANEL (STL) CHOLESTEROL IN HDL [MASS/VOLUM E] IN SERUM OR PLASMA 31 mg/dL 40 11/22 L Specimen Type: PLASMA Comment: LDL calculation invalid when Triglycerid e exceeds 250 mg/dl Ordering Provider: JES AMAYA Report Released Date/Time: February 17, 2023 04:00 PM Reporting Lab: [facility] [address] [place] [phone] Performing Lab: [facility] [address] [place] [phone] [facility] LIPID PANEL (STL) CHOLESTEROL IN LDL [MASS/VOLUM E] IN SERUM OR PLASMA BY DIRECT ASSAY 82 mg/dL 100 11/22 L Specimen Type: PLASMA Comment: LDL calculation invalid when Triglycerid e exceeds 250 mg/dl Ordering Provider: JES AMAYA Report Released Date/Time: February 17, 2023 04:00 PM Reporting Lab: [address] [phone] Performing Lab: [address] [phone] [place] [address] PROST. SPECIFIC AG.(PB-ST L) PROSTATE SPECIFIC AG [MASS/VOLUM E] IN SERUM OR PLASMA 0.858 ng/mL 0 - 4 11/22 Specimen Type: SERUM Comment: The listed sex of this patient may not be a typical indication for this test. Therefore, reference ranges or interpretiv e criteria listed may not be valid. Clinical correlation suggested. Ordering Provider: JES AMAYA Report Released Date/Time: February 17, 2023 04:00 PM Reporting Lab: [address] [phone] Performing Lab: [address] [phone] [place] [address] TSH (MA-PB-ST L) THYROTROPIN [UNITS/VOLU ME] IN SERUM OR PLASMA 2.509 u[IU]/ mL 0.47 - 5 11/22 Specimen Type: PLASMA Comment: LDL calculation invalid when Triglycerid e exceeds 250 mg/dl Ordering Provider: JES AMAYA Report Released Date/Time: February 17, 2023 04:00 PM Reporting Lab: [address] [phone] Performing Lab: [address] [phone] [facility] VITAMIN D, 25-HYDROX Y 25-HYDROXYV ITAMIN D3 [MASS/VOLUM E] IN SERUM OR PLASMA 33.4 ng/mL 30 - 96 11/22 Specimen Type: SERUM Comment: The listed sex of this patient may not be a typical indication for this test. Therefore, reference ranges or interpretiv e criteria listed may not be valid. Clinical correlation suggested. Ordering Provider: JES AMAYA Report Released Date/Time: February 17, 2023 04:00 PM Reporting Lab: [facility] [address] [facility] [address] Performing Lab: [address] [address] [facility] HGA1C HEMOGLOBIN A1C/HEMOGLO BIN.TOTAL IN BLOOD 6.2 4.0 - 6.0 02/16 H Specimen Type: BLOOD No comment entered. Ordering Provider: JES AMAYA Report Released Date/Time: February 15, 2023 01:22 PM Reporting Lab: [address] [phone] Performing Lab: [address] [address] [facility] Vital Signs Combined list of inpatient and outpatient Vital Signs from Department of Defense and Veterans Affairs, ranging from 12 months to all on record, depending upon the facility. Vital Sign Value Date Comments Source SYSTOLIC BLOOD PRESSURE 123 04/12/2024 08:26:15 [facility] DIASTOLIC BLOOD PRESSURE 77 04/12/2024 08:26:15 [facility] PULSE OXIMETRY 96 04/12/2024 08:26:15 [facility] [facility] WEIGHT 282.9 04/12/2024 08:26:15 [facility] BMI 36 kg/m2 04/12/2024 08:26:15 [facility] PAIN 3 04/12/2024 08:26:15 [facility] HEIGHT 74 04/12/2024 08:26:15 [facility] TEMPERATURE 96.2 04/12/2024 08:26:15 [facility] PULSE 72 04/12/2024 08:26:15 [facility] RESPIRATION 18 04/12/2024 08:26:15 [facility] Encounters Combined list of: 1) Encounters from [facility] of Veterans Affairs facilities going backup to the last 18 months, not all VA inpatient encounters are included; 2) Encounters from the Department of [place] facilities going backup to 280 months. Location Location Details Encounter Type Encounter Number Reason For Visit Attending Provider ADM Date DC Date Status Disposition Source [facility] THERAPEUTI C EXERCISES [id number] Diagnos is: ICD-10- CM M25.569 Pain in unspeci fied knee CAMACHO GUTIÉRREZ 06/22 [facility] Outpatient Encounter [id number] 07/13 [facility] Outpatient Encounter [id number] 07/14 [facility] THERAPEUTI C EXERCISES [id number] Diagnos is: ICD-10- CM M25.569 Pain in unspeci fied knee CAMACHO GUTIÉRREZ 07/27 [facility] N [facility] Outpatient Encounter [id number] 08/09 [facility] THERAPEUTI C EXERCISES [id number] Diagnos is: ICD-10- CM M25.569 Pain in unspeci fied knee CAMACHO GUTIÉRREZ 08/10 [facility] SELF-MGMT EDUC & TRAIN 1 [place] [id number] Diagnos is: ICD-10- CM M25.569 Pain in unspeci fied knee CAMACHO GUTIÉRREZ 08/24 [facility]/P NEW LOW 30 MIN [id number] Diagnos is: ICD-10- CM M17.11 Unilate ral primary osteoar thritis , right knee RASHAUN CORTEZ R 10/[address] [facility] Outpatient Encounter [id number] 10/[address] [facility] Encounter [id number] 11/22 [facility] N [facility] OFFICE O/P EST MOD 30 MIN [id number] Diagnos is: ICD-10- CM M25.569 Pain in unspeci fied knee ELLEN AMAYA N 11/22 [facility] OFFICE O/P EST LOW 20 MIN [id number] Diagnos is: ICD-10- CM L94.0 Localiz ed sclerod ivan [morphe a] AB TANYA BY RR 02/14 [facility] Outpatient Encounter [id number] 04/12 [facility] OFFICE O/P EST MOD 30 MIN [id number] Diagnos is: ICD-10- CM M17.0 Bilater al primary osteoar thritis of knee RASHAUN CORTEZ R 04/[address] [facility] Outpatient Encounter [id number] JOSEPH FINLEY L 08/31 [facility] Outpatient Encounter [id number] ELLEN AMAYA N 09/[address] [facility] Outpatient Encounter [id number] 10/[address] [facility] Outpatient Encounter [id number] JOSEPH FINLEY 11/21 [facility] N [facility] SYNCH AUDIO-ONLY EST MOD 30 [id number] Diagnos is: ICD-10- CM E78.5 Hyperli pidemia , unspeci ELLEN Catherine YEVGENIY N 11/23 [facility] Procedures Combined list of: 1) Procedures from Department of Veterans Affairs facilities going back up to thelast 18 months, not all VA non-surgical procedures are included; 2) All procedures from the Department of Defense facilities. Procedure Procedure Type Code Date Perfomer Comments Sourc e No data available for this section Ambulatory P harmacy Social History Combined list of available smoking, tobacco, and other social history from Department of Defense and Veterans Affairs facilities. Social History Type Response Date Comment Sourc e Tobacco smoking status NHIS VA-TOBACCO NEVER USED 02/17/2023 [facility] History of tobacco use CO-TOBACCO NEVER USED 02/18/2022 [facility] History of tobacco use CO-TOBACCO NEVER USED 04/10/2020 [facility] History of tobacco use CO-TOBACCO NEVER USED 02/12/2020 [facility] History of tobacco use VA-TOBACCO NEVER USED 03/17/2018 [facility] History of tobacco use LIFETIME NON-USER OF TOBACCO 06/17/2017 [facility] History of tobacco use LIFETIME NON-USER OF TOBACCO 11/03/2016 [facility] History of tobacco use LIFETIME NON-USER OF TOBACCO 10/04[facility] Assessment and Plan Combined list of future care activities from Department of Defense and Veterans Affairs facilities (e.g., assessment and plan notes, appointments, orders, and referrals). Additional future care activities may be listed in the Plan of Care section. Result Assessment and Plan Date Source Assessment and Plan No data available for this section 12/18/2024 Ambulatory Pharmacy Plan of Care List of future care activities from Department of [facility] facilities. Additional future care activities may be listed in the Assessment and Plan section. Date/Time Care Activity Care Activity Detail Facili ty 02/12/2025 AMBULATORY - MEDICINE AMBULATORY - MEDICI [facility] Advance Directives List of completed, amended, or rescinded Advance Directives on record at Department [facility] facilities. An actual copy of the Directive is not included. Date Advance Directive Provider Source 11/04/2016 ADVANCE DIRECTIVE DISCUSSION KASSIE KUHN [facility] Functional Status Combined list of recent functional and cognitive assessments recorded at Department of Defense and Veterans Affairs (VA).VA Functional [place] Measurement (FIM) Scale: 1 = Total Assistance (Subject = 0% +), 2 = Maximal Assistance (Subject = 25% +), 3 = Moderate Assistance (Subject = 50% +), 4 = Minimal Assistance (Subject = 75% +), 5 = Supervision, 6 = Modified [place] (Device), 7 = Complete [place] (Timely, Safely). Assessment Date/Time Source Assessment Type Assessment Skill Assessment Score Assessment Details No data available for this section
== END 2024-12-18 16:21 | disposition home or self-care (01) ==
PROVIDERS: PCP Family Medicine; Visit Provider Family Medicine
DX: S82.091A Other fracture of right patella, initial encounter for closed fracture (principal); X58.XXXA Exposure to other specified factors, initial encounter
CPT/HCPCS: 73560; 73562

== ENCOUNTER 2025-05-22 06:51 | Outpatient (CLI) | payer OTHER, MEDICARE, SELFPAY ==
--- OUTSIDE RECORDS SUMMARY | 2025-02-12 04:00 | XMS_ITS | Encounter Summary ---
Author Name [facility] [place] [facility] [facility] [place] Address [address] [place] [address] Care Team Providers Care Security Control Room Officer Name Role Phone EUGENIO AMAYA Primary Care Provider Unavailabl e Insurance Providers: All historical and current Section Date Range: From patient's date of to the date document was created. This section includes the names of all active insurance providers for the patient. Insurance Provider Type of Coverage Plan Name Start of Policy Coverage End of Policy Coverage Group Number Member ID Insurance Provider's Telephone Number Policy Dotson's Name Patient's Relationship to Policy Dotson [employer] [facility] Sep 27, 2018 [id number] [id number] DEE BRAGG PATIENT [employer] PRESCRIPT ION ACTV 1850 DEDUC T [facility] Sep 27, 2024 WNDA [id number] [phone] DEE BRAGG PATIENT [employer]) PRESCRIPT ION ACTV 1850 DEDUC T [facility] Sep 27, 2017 [id number] [phone] DEE BRAGG PATIENT Selected Encounter This section includes the information on record at [place] for the Encounter. Date/Time Encounter Type Encounter Description Reason Provider Source February 12, 2025 09:00 AM OFFICE O/P EST MOD 30 MIN DERMATOLOGY ICD-10-CM D22.5 Melanocytic nevi of trunk OSMELMARY ORELLANAN [facility] Encounter Template Text not used by [place] Assessments - Encounter Diagnoses This section includes the primary and secondary diagnoses documented for the Encounter. 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 Plan of Treatment: Future Appointments (+ 6 months) and Future Tests (+/- 45 days) The Plan of Treatment section includes future care activities for the patient from all [place] [facility] This section includes future appointments and future orders which are active, pending or scheduled. Future Appointments This section includes appointments that were scheduled to occur 6 months from the date of the Encounter, up to a maximum of 20 appointments. The data comes from all [place] treatment facilities. Appointment Date/Time Appointment Type Appointme nt Facility Name Jun 27, 2025 08:00 AM AMBULATORY - SURGERY [facility] Social History: Smoking Status (Most current) and Tobacco Use (All prior to encounter date) This section includes the most current, and the historical, smoking and tobacco- related health factors from the [place] facility where the Encounter took place. Current Smoking Status This section includes the most current smoking, or tobacco-related health factor, from the [place] facility where the Encounter took place. Date/Time Current Smoking Status Comment Heather ity February 12, 2020 11:41 AM VA-TOBACCO NEVER USED [facility] Tobacco Use History This section includes a history of the smoking, or tobacco-related health factors, that were collected on or before the date of the Encounter. The data comes from the [place] facility where the Encounter took place. Date/Time Smoking Status/Tobacco Use Comment F acility Nov 03, 2016 01:04 PM LIFETIME NON-USER OF TOBACCO [facility] Advance Directives: All historical and current Section Date Range: From patient's date of to the date document was created. This section includes ALL of a patient's completed or amended [place] Advance and Rescinded Directives. The entries below indicate that a directive exists for the patient, but an actual copy is not included with this document. The data comes from all [place] facilities. Date Advance Directives Provider Source Nov 04, 2016 ADVANCE DIRECTIVE DISCUSSION KASSIE KUHN [facility] Encounter Notes: All associated encounter notes This section contains the clinical notes associated to the Encounter. Date/Time Encounter Note(s) Provider Source February 12, 2025 09:08 AM DERMATOLOGY NOTE: LOCAL TITLE: DERMATOLOGY NOTE STANDARD TITLE: DERMATOLOGY NOTE DATE OF NOTE: FEBRUARY 12, 2025@09:08 ENTRY DATE: FEBRUARY 12, 2025@09:08:42 AUTHOR: KEESHA VANEGAS COSIGNER: SEVERIANO MANN URGENCY: STATUS: COMPLETED DERMATOLOGY NOTE Has ADDENDA CC: fbse, f/u morphea DEE MOSS is a 64 year old WHITE MALE with no history of skin cancer who presents for FBSE and f/u morphea. Today, spot on the abdomen hasn't changed or grown, no new areas of involvement. Actually notes, he feels like it is receding/not bothersome. Otherwise, no new, changing, or symptomatic skin lesions, moles, or rashes today. Allergies: SIMVASTATIN ROS: no fever or chills, no recent unintended weight change, no non-healing sores PE: Skin: - bob-yellow atrophic plaque over right abdomen - Trunk and upper extremities with scattered brown waxy stuck on appearing papules - Trunk and upper extremities with scattered brown uniform macules and thin papules, and with light brown uniform macules otherwise: General Appearance: Well-appearing MALE, NAD Face: WNL Ears: WNL Scalp, Hair: WNL Neck: WNL Chest: WNL Back: WNL Abdomen: WNL Upper Extremities: WNL Mood/Affect: WNL Assessment/Plan: # Morphea Location: Trunk; stable, intermittently itchy but otherwise asymptomatic Reviewd diagnosis, management options. Given clinical stability will CTM # Seborrheic keratoses Benign, reassurance # Nevi, benign # Lentigines ABCDEs reviewed Monthly self skin examinations Regular MD full body skin examination Photoprotection with broad spectrum SPF 30+ daily and reapplied l2flnso, use of UPF clothing and hats, and sun avoidance Pt phone: RTC 1 year, or sooner prn /diya/ Keesha Vanegas MD Resident Physician Signed: 02/12/2025 09:11 /diya/ Severiano Mann M.D., Ph.D. [facility] - Dermatology Cosigned: 02/12/2025 09:24 02/12/2025 ADDENDUM STATUS: COMPLETED Discussed case with resident. Agree with history, physical examination, assessment, and plan. /diya/ Severiano Mann M.D., Ph.D. [facility] - Dermatology Signed: 02/12/2025 09:25 KEESHA VANEGAS [facility]
--- OUTSIDE RECORDS SUMMARY | 2025-05-22 06:54 | XMS_ITS | Continuity of Care Document ---
Author Name [facility] Organization [facility] Care Team Providers Care Hogshead Inspector Name Role Phone [facility] Unavailable Unavailable Problems Combined list of problems from Department of Defense and Veterans Affairs facilities. It does not include entries that were removed or entered in error. Problem Status Onset Date Problem Type Date of Resolution Comments Source Epidermal nevus of trunk Active Condition [facility] Exposure to potentially hazardous substance Active Condition [facility] Hyperlipidemia Active Condition [facility] Hyperlipidemia * (ICD-9-CM 272.4) Active Condition [facility] Medical examinations/repor ts status Active Condition [facility] Mild intermittent asthma Active Condition [facility] [place] Active Condition [facility] [place] * (ICD-9-CM 701.0) Active Condition [facility] Obesity Active Condition [facility] Osteoarthritis of knee Active Condition [facility] Pain in left foot Active Condition [facility] Pain in right knee Active Condition [facility] Pain of bilateral knee joints Active Condition [facility] Peripheral neuropathy Active Condition [facility] Rash Active Condition [facility] HYPERLIPIDEMIA Active Condition [facility] GANGLION Active Condition [facility] After[facility] Active Condition [facility] visit for: screening exam malignant neoplasm prostate Inactive Condition [facility] visit for: screening malignant neoplasm colon Inactive Condition [facility] visit for: administrative purpose Inactive Condition [facility] visit for: routine adult H&P Inactive Condition [facility] Diagnosis: ICD-10-CM D22.5 Melanocytic nevi of trunk Active Diagnosis [facility] Diagnosis: ICD-10-CM E78.5 Hyperlipidemia, unspecified Active Diagnosis [facility] Diagnosis: ICD-10-CM M17.0 Bilateral primary osteoarthritis of knee Active Diagnosis [facility] Diagnosis: ICD-10-CM L94.0 Localized scleroderma [morphea] Active Diagnosis [facility] Diagnosis: ICD-10-CM M25.569 Pain in unspecified knee Active Diagnosis [facility] Medications Combined list of outpatient medications from Department of Defense and Veterans Affairs facilities.Medications provided include 1) outpatient medications from the last 15 months, and 2) patient-reported medications. Medication Details Route Status Patient Instructions Prescription Expires Prescription Number Last Dispense Date Ordering Provider Order Date Order Qty Source albuterol 90 mcg inhaler [8.5g] See Instruct ions, Inhale, # 8.5 g, 1 total refill(s ), Hard Stop Inhala tion (breat he in) Discont inued 03/01/2025 4 2024 8.5 Ambulat ory Pharmac y albuterol 90 mcg inhaler [8.5g] See Instruct ions, # 8.5 g, 1 total refill(s ), Soft Stop Ordered 5 2024 8.5 Ambulat ory Pharmac y albuterol 90 [...] RESPIR ATORY (INHAL ATION) ACTIVE RAY AMAYA 2019 [facility] budesonide- formoterol 160-4.5 mcg inhaler (10.2g) See Instruct ions, Inhale, # 10.2 g, 2 total refill(s ), Hard Stop Inhala tion (breat he in) Complet ed 01/17/2025 4 2024 10.2 Ambulat ory Pharmac y CALCIUM CARBONATE 500MG TAB,CHEWABL E CHEW AND SWALLOW TWO TABLETS BY MOUTH EVERY MONTH ORAL ACTIVE ISREAL GUILLAUME I 2006 [facility] GABAPENTIN 300MG CAP TAKE 2 CAPSULES BY MOUTH THREE TIMES A DAY ORAL ACTIVE RAY AMAYA N 2020 [facility] gabapentin 600 mg tablet See Instruct ions, # 270 EA, 1 total refill(s ), Acute Complet ed 12/27/2023 3 2023 270.0 Ambulat ory Pharmac y gabapentin 600 mg tablet 600 mg, Oral, TID, # 270 EA, 1 total refill(s ), Hard Stop Oral (given by mouth) Discont inued 07/12/2024 4 2023 270.0 Ambulat ory Pharmac y gabapentin 800 mg tablet = 1 tab(s), Oral, TID, # 270 EA, 1 total refill(s ), Hard Stop Oral (given by mouth) Discont inued 01/12/2025 5 2024 270.0 Ambulat ory Pharmac y gabapentin 800 mg tablet = 1 tab(s), Oral, TID, # 270 EA, 1 total refill(s ), Soft Stop Oral (given by mouth) Ordered 5 2024 270.0 Ambulat ory Pharmac y gabapentin 800 mg tablet 800 mg, Oral, TID, # 270 EA, 1 total refill(s ), Hard Stop Oral (given by mouth) Discont inued 07/12/2024 4 2023 270.0 Ambulat ory Pharmac y IBUPROFEN 200MG TAB TAKE ONE TABLET BY MOUTH FOUR TIMES A DAY NEEDED ORAL ACTIVE ISREAL GUILLAUME I 2006 [facility] rosuvastati n 5 mg tablet 5 mg, Oral, Daily, # 90 EA, 1 total refill(s ), Hard Stop Oral (given by mouth) Discont inued 01/19/2024 4 2023 90.0 Ambulat ory Pharmac y rosuvastati n 5 mg tablet = 1 tab(s), Oral, Daily, # 90 EA, 1 total refill(s ), Hard Stop Oral (given by mouth) Discont inued 04/18/2025 5 2024 90.0 Ambulat ory Pharmac y rosuvastati n 5 mg tablet = 1 tab(s), Oral, Daily, # 90 EA, 1 total refill(s ), Soft Stop Oral (given by mouth) Ordered 5 2024 90.0 Ambulat ory Pharmac y rosuvastati n [...] MOUTH EVERY EVENING ORAL ACTIVE RAY AMAYA N 2016 [facility] N triamcinolo ne 0.1% ointment [15g] [...] Reaction type Status Date Reported Comments Source Simvastatin Drug allergy (disorder) Neuropathy active 7 [facility] SIMVASTATIN Propensity to adverse reactions to drug (finding) Neuropathy MODERATE active 7 [facility] simvastatin Propensity to adverse reactions to drug Neuropathy Active 7 simvastati n caused neuropathy Unknown Organiza tion Immunizations Combined list of available immunizations from the Department of Defense and Veterans Affairs facilities. Immunization Series Date Given Administered By Site Reaction Lot Number CVX Code Drug Bike Technician Status Comments Source COVID-19 (PFIZER), MRNA, LNP-S, PF, 30 MCG/0.3 ML DOSE 3 2020 208 complet ed PFR; [id number]; 2 [facility] COVID-19 (PFIZER), MRNA, LNP-S, PF, 30 MCG/0.3 ML DOSE 2 2020 208 complet ed PFR; [id number]; 1 [facility] COVID-19 (PFIZER), MRNA, LNP-S, PF, 30 MCG/0.3 ML DOSE 1 2020 208 complet ed PFR; [id number]; 1 [facility] INFLUENZA, UNSPECIFIED FORMULATION 2019 88 complet ed [facility] zoster vaccine, inactivated 2019 zzLef t Arm [id number] [employer] complet ed zoster vaccine, inactivat ed 11/14/19 Given Ambulat ory Pharmac y zoster vaccine, inactivated 2019 [id number] [employer] complet ed zoster vaccine, inactivat ed 11/14/19 Given Ambulat ory Pharmac y zoster vaccine recombinant 1 2019 Unknown, Provider [id number] 187 [employer] (SKB) complet ed zoster vaccine recombina nt DoD PNEUMOCOCCAL POLYSACCHARID E PPV23 2019 33 complet ed [facility] zoster vaccine, inactivated 2018 zzLef t Arm [id number] 187 [employer] complet ed zoster vaccine, inactivat ed 08/22/19 Given Ambulat ory Pharmac y zoster vaccine recombinant 1 2018 Unknown, Provider [id number] 187 [employer] (SKB) complet ed zoster vaccine recombina nt DoD INFLUENZA, UNSPECIFIED FORMULATION 2018 88 complet ed [facility] INFLUENZA, UNSPECIFIED FORMULATION 2016 88 complet ed [facility] zoster vaccine live 2016 zzLef t Arm [id number] [employer] complet ed zoster vaccine live 02/24/17 Given Ambulat ory Pharmac y zoster vaccine live 2016 [id number] [employer] complet ed zoster vaccine live 02/24/17 Given Ambulat ory Pharmac y zoster vaccine, live 1 2016 Unknown, Provider [id number] 121 [employer]ck (MSD) complet ed zoster vaccine, live DoD TDAP 2016 115 complet ed Left Deltoid [facility] INFLUENZA, UNSPECIFIED FORMULATION 2015 88 complet ed [facility] Results Combined list of recent [...] February 17, 2023 04:00 PM Reporting Lab: [facility] [address] [place] [phone] Performing Lab: [address] [address] [facility] URINALYSI S (STL-PB) BILIRUBIN.T OTAL [PRESENCE] IN URINE BY TEST STRIP Negati vemg/d L 11/22 Specimen Type: URINE No comment entered. Ordering Provider: JES AMAYA Report Released Date/Time: February 17, 2023 04:00 PM Reporting Lab: [facility] [address] [place] [phone] Performing Lab: [address] [address] [facility] URINALYSI S (STL-PB) PH OF URINE BY TEST STRIP 6.0 5.0 - 8.0 11/22 Specimen Type: URINE No comment entered. Ordering Provider: JES AMAYA Report Released Date/Time: February 17, 2023 04:00 PM Reporting Lab: [facility] [address] [place] [phone] Performing Lab: [address] [phone] [facility] URINALYSI S (STL-PB) APPEARANCE OF URINE Clear 11/22 Specimen Type: URINE No comment entered. Ordering Provider: JES AMAYA Report Released Date/Time: February 17, 2023 04:00 PM Reporting Lab: [facility] [address] [place] [phone] Performing Lab: [facility] [address] [place] [phone] [facility] URINALYSI S (STL-PB) NITRITE [PRESENCE] IN URINE BY TEST STRIP Negati vemg/d L 11/22 Specimen Type: URINE No comment entered. Ordering Provider: JES AMAYA Report Released Date/Time: February 17, 2023 04:00 PM Reporting Lab: [facility] [address] [place] [phone] Performing Lab: [address] [phone] [place] [address] URINALYSI S (STL-PB) GLUCOSE [MASS/VOLUM E] IN URINE BY TEST STRIP Normal mg/dL 11/22 Specimen Type: URINE No comment entered. Ordering Provider: JES AMAYA Report Released Date/Time: February 17, 2023 04:00 PM Reporting Lab: [facility] [address] [place] [phone] Performing Lab: [facility] [address] [place] [phone] [facility] URINALYSI S (STL-PB) PROTEIN [MASS/VOLUM E] IN URINE BY TEST STRIP Negati vemg/d L - 20 11/22 Specimen Type: URINE No comment entered. Ordering Provider: JES AMAYA Report Released Date/Time: February 17, 2023 04:00 PM Reporting Lab: [facility] [address] [place] [phone] Performing Lab: [facility] [address] [place] [phone] [facility] URINALYSI S (STL-PB) URN.UROBILI NOGEN 2 mg/dL 11/22 H Specimen Type: URINE No comment entered. Ordering Provider: JES AMAYA Report Released Date/Time: February 17, 2023 04:00 PM Reporting Lab: [address] [phone] Performing Lab: [address] [phone] [facility] URINALYSI S (STL-PB) HEMOGLOBIN [MASS/VOLUM E] IN URINE BY TEST STRIP Negati vemg/d L 11/22 Specimen Type: URINE No comment entered. Ordering Provider: JES AMAYA Report Released Date/Time: February 17, 2023 04:00 PM Reporting Lab: [address] [phone] Performing Lab: [address] [phone] [place] [address] URINALYSI S (STL-PB) KETONES [MASS/VOLUM E] IN URINE BY TEST STRIP Negati vemg/d L 11/22 Specimen Type: URINE No comment entered. Ordering Provider: JES AMAYA Report Released Date/Time: February 17, 2023 04:00 PM Reporting Lab: [address] [phone] Performing Lab: [address] [phone] [place] [address] URINALYSI S (STL-PB) URN.LEUK.ES T. Negati vemg/d L 11/22 Specimen Type: URINE No comment entered. Ordering Provider: JES AMAYA Report Released Date/Time: February 17, 2023 04:00 PM Reporting Lab: [address] [phone] Performing Lab: [address] [phone] [facility] URINALYSI S (STL-PB) SPECIFIC GRAVITY OF URINE 1.021 1.005 - 1.029 11/22 Specimen Type: URINE No comment entered. Ordering Provider: JES AMAYA Report Released Date/Time: February 17, 2023 04:00 PM Reporting Lab: [facility] [address] [place] [phone] Performing Lab: [address] [phone] [facility] HGA1C HEMOGLOBIN A1C/HEMOGLO BIN.TOTAL IN BLOOD 6.1 4.0 - 6.0 11/22 H Specimen Type: BLOOD No comment entered. Ordering Provider: JES AMAYA Report Released Date/Time: February 17, 2023 04:00 PM Reporting Lab: [facility] [address] [place] [phone] Performing Lab: [address] [phone] [facility] LIPID PANEL (STL) CHOLESTEROL [MASS/VOLUM E] IN SERUM OR PLASMA 152 mg/dL 0 - 200 11/22 Specimen Type: PLASMA Comment: LDL calculation invalid when Triglycerid e exceeds 250 mg/dl Ordering Provider: JES AMAYA Report Released Date/Time: February 17, 2023 04:00 PM Reporting Lab: [address] [phone] Performing Lab: [address] [phone] [facility] LIPID PANEL (STL) TRIGLYCERID E [MASS/VOLUM E] IN SERUM OR PLASMA 347 mg/dL 0 - 150 11/22 H Specimen Type: PLASMA Comment: LDL calculation invalid when Triglycerid e exceeds 250 mg/dl Ordering Provider: JES AMAYA Report Released Date/Time: February 17, 2023 04:00 PM Reporting Lab: [facility] [address] [place] [phone] Performing Lab: [address] [address] [facility] LIPID PANEL (STL) CHOLESTEROL IN LDL [MASS/VOLUM E] IN SERUM OR PLASMA BY CALCULATION commen tmg/dL 11/22 Specimen Type: PLASMA Comment: LDL calculation invalid when Triglycerid e exceeds 250 mg/dl Ordering Provider: JES AMAYA Report Released Date/Time: February 17, 2023 04:00 PM Reporting Lab: [address] [address] Performing Lab: [address] [phone] [place] [address] LIPID PANEL (STL) CHOLESTEROL IN HDL [MASS/VOLUM E] IN SERUM OR PLASMA 31 mg/dL 40 11/22 L Specimen Type: PLASMA Comment: LDL calculation invalid when Triglycerid e exceeds 250 mg/dl Ordering Provider: JES AMAYA Report Released Date/Time: February 17, 2023 04:00 PM Reporting Lab: [address] [phone] Performing Lab: [address] [address] [facility] LIPID PANEL (STL) CHOLESTEROL IN LDL [MASS/VOLUM E] IN SERUM OR PLASMA BY DIRECT ASSAY 82 mg/dL 100 11/22 L Specimen Type: PLASMA Comment: LDL calculation invalid when Triglycerid e exceeds 250 mg/dl Ordering Provider: JES AMAYA Report Released Date/Time: February 17, 2023 04:00 PM Reporting Lab: [address] [address] Performing Lab: [address] [phone] [facility] COMPREHEN SIVE METABOLIC PANEL CREATININE [MASS/VOLUM E] IN SERUM OR PLASMA 1.14 mg/dL 0.7 - 1.3 11/22 Specimen Type: PLASMA Comment: LDL calculation invalid when Triglycerid e exceeds 250 mg/dl Ordering Provider: JES AMAYA Report Released Date/Time: February 17, 2023 04:00 PM Reporting Lab: [facility] [address] [facility] [phone] Performing Lab: [facility] [address] [facility] [phone] [facility] COMPREHEN SIVE METABOLIC PANEL UREA NITROGEN [MASS/VOLUM E] IN SERUM OR PLASMA 22.4 mg/dL 9.0 - 25.0 11/22 Specimen Type: PLASMA Comment: LDL calculation invalid when Triglycerid e exceeds 250 mg/dl Ordering Provider: JES AMAYA Report Released Date/Time: February 17, 2023 04:00 PM Reporting Lab: [facility] [address] [place] [phone] Performing Lab: [facility] [address] [place] [phone] [place] [address] COMPREHEN SIVE METABOLIC PANEL GLUCOSE [MASS/VOLUM E] IN SERUM OR PLASMA 97 mg/dL 72 - 99 11/22 Specimen Type: PLASMA Comment: LDL calculation invalid when Triglycerid e exceeds 250 mg/dl Ordering Provider: JES AMAYA Report Released Date/Time: February 17, 2023 04:00 PM Reporting Lab: [facility] [address] [place] [phone] Performing Lab: [facility] [address] [place] [phone] [facility] COMPREHEN SIVE METABOLIC PANEL SODIUM [MOLES/VOLU ME] IN SERUM OR PLASMA 138 meq/L 136 - 145 11/22 Specimen Type: PLASMA Comment: LDL calculation invalid when Triglycerid e exceeds 250 mg/dl Ordering Provider: JES AMAYA Report Released Date/Time: February 17, 2023 04:00 PM Reporting Lab: [facility] [address] [place] [phone] Performing Lab: [facility] [address] [place] [phone] [facility] COMPREHEN SIVE METABOLIC PANEL POTASSIUM [MOLES/VOLU ME] IN SERUM OR PLASMA 3.9 meq/L 3.5 - 5 11/22 Specimen Type: PLASMA Comment: LDL calculation invalid when Triglycerid e exceeds 250 mg/dl Ordering Provider: JES AMAYA Report Released Date/Time: February 17, 2023 04:00 PM Reporting Lab: [facility] [address] [place] [phone] Performing Lab: [facility] [address] [place] [phone] [facility] COMPREHEN SIVE METABOLIC PANEL CHLORIDE [MOLES/VOLU ME] IN SERUM OR PLASMA 103 meq/L 98 - 107 11/22 Specimen Type: PLASMA Comment: LDL calculation invalid when Triglycerid e exceeds 250 mg/dl Ordering Provider: JES AMAYA Report Released Date/Time: February 17, 2023 04:00 PM Reporting Lab: [facility] [address] [place] [phone] Performing Lab: [address] [phone] [facility] COMPREHEN SIVE METABOLIC PANEL CARBON DIOXIDE, TOTAL [MOLES/VOLU ME] IN SERUM OR PLASMA 21 meq/L 22 - 31 11/22 L Specimen Type: PLASMA Comment: LDL calculation invalid when Triglycerid e exceeds 250 mg/dl Ordering Provider: JES AMAYA Report Released Date/Time: February 17, 2023 04:00 PM Reporting Lab: [facility] [address] [place] [phone] Performing Lab: [facility] [address] [place] [phone] [facility] COMPREHEN SIVE METABOLIC PANEL CALCIUM [MASS/VOLUM E] IN SERUM OR PLASMA 9.4 mg/dL 8.4 - 10.4 11/22 Specimen Type: PLASMA Comment: LDL calculation invalid when Triglycerid e exceeds 250 mg/dl Ordering Provider: JES AMAYA Report Released Date/Time: February 17, 2023 04:00 PM Reporting Lab: [facility] [address] [facility] [phone] Performing Lab: [facility] [address] [place] [phone] [facility] COMPREHEN SIVE METABOLIC PANEL PROTEIN [MASS/VOLUM E] IN SERUM OR PLASMA 8.5 g/dL 6 - 8.6 11/22 Specimen Type: PLASMA Comment: LDL calculation invalid when Triglycerid e exceeds 250 mg/dl Ordering Provider: JES AMAYA Report Released Date/Time: February 17, 2023 04:00 PM Reporting Lab: [address] [phone] Performing Lab: [address] [phone] COMPREHEN SIVE METABOLIC PANEL ALBUMIN [MASS/VOLUM E] IN SERUM OR PLASMA 4.8 g/dL 3.4 - 5 11/22 Specimen Type: PLASMA Comment: LDL calculation invalid when Triglycerid e exceeds 250 mg/dl Ordering Provider: JES AMAYA Report Released Date/Time: February 17, 2023 04:00 PM Reporting Lab: [address] [phone] Performing Lab: [address] [phone] [place] [address] COMPREHEN SIVE METABOLIC PANEL BILIRUBIN.T OTAL [MASS/VOLUM E] IN SERUM OR PLASMA 0.5 mg/dL 0.2 - 1.2 11/22 Specimen Type: PLASMA Comment: LDL calculation invalid when Triglycerid e exceeds 250 mg/dl Ordering Provider: JES AMAYA Report Released Date/Time: February 17, 2023 04:00 PM Reporting Lab: [facility] [address] [place] [phone] Performing Lab: [address] [phone] [place] [address] COMPREHEN SIVE METABOLIC PANEL ALKALINE PHOSPHATASE [ENZYMATIC ACTIVITY/VO LUME] IN SERUM OR PLASMA 67 U/L 40 - 150 11/22 Specimen Type: PLASMA Comment: LDL calculation invalid when Triglycerid e exceeds 250 mg/dl Ordering Provider: JES AMAYA Report Released Date/Time: February 17, 2023 04:00 PM Reporting Lab: [facility] [address] [facility] [phone] Performing Lab: [address] [phone] [place] [address] COMPREHEN SIVE METABOLIC PANEL ASPARTATE AMINOTRANSF ERASE [ENZYMATIC ACTIVITY/VO LUME] IN SERUM OR PLASMA 23 U/L 5 - 34 11/22 Specimen Type: PLASMA Comment: LDL calculation invalid when Triglycerid e exceeds 250 mg/dl Ordering Provider: JES AMAYA Report Released Date/Time: February 17, 2023 04:00 PM Reporting Lab: [address] [phone] Performing Lab: [address] [phone] [place] [address] COMPREHEN SIVE METABOLIC PANEL ALANINE AMINOTRANSF ERASE [ENZYMATIC ACTIVITY/VO LUME] IN SERUM OR PLASMA 39 U/L 8 - 40 11/22 Specimen Type: PLASMA Comment: LDL calculation invalid when Triglycerid e exceeds 250 mg/dl Ordering Provider: JES AMAYA Report Released Date/Time: February 17, 2023 04:00 PM Reporting Lab: [facility] [address] [place] [phone] Performing Lab: [address] [phone] [facility] COMPREHEN SIVE METABOLIC PANEL GLOMERULAR FILTRATION RATE/1.73 SQ M.PREDICTED [VOLUME RATE/AREA] IN SERUM, PLASMA OR BLOOD BY CREATININE- BASED FORMULA (CKD-EPI 2020) 71.4 60 11/22 Specimen Type: PLASMA Comment: LDL calculation invalid when Triglycerid e exceeds 250 mg/dl Ordering Provider: JES AMAYA Report Released Date/Time: February 17, 2023 04:00 PM Reporting Lab: [facility] [address] [place] [phone] Performing Lab: [address] [phone] [facility] PROST. SPECIFIC AG.(PB-ST L) PROSTATE SPECIFIC AG [...] February 17, 2023 04:00 PM Reporting Lab: [address] [phone] Performing Lab: [address] [phone] [place] [address] TSH (MA-PB-ST L) THYROTROPIN [UNITS/VOLU ME] IN SERUM OR PLASMA 2.509 u[IU]/ mL 0.47 - 5 11/22 Specimen Type: PLASMA Comment: LDL calculation invalid when Triglycerid e exceeds 250 mg/dl Ordering Provider: JES AMAYA Report Released Date/Time: February 17, 2023 04:00 PM Reporting Lab: [address] [phone] Performing Lab: [address] [phone] [place] [address] VITAMIN D, 25-HYDROX Y 25-HYDROXYV ITAMIN D3 [...] February 17, 2023 04:00 PM Reporting Lab: [address] [id number] Performing Lab: [address] [id number] [facility] Encounters Combined list of: 1) Encounters from Department of [facility] facilities going backup to the last 18 months, not all [place] inpatient encounters are included; 2) Encounters from the Department of Defense facilities going backup to 280 months. Location Location Details Encounter Type Encounter Number Reason For Visit Attending Provider ADM Date DC Date Status Disposition Source [address] [place] [address] [facility]Sco tt [facility] Fam Res Tm Green) OUTPATIENT [id number] General Phy Age: 52Y/O Male Request Labs H# [facility] HAS FORM DEJA MEDRANO 10/10 Released w/o Limitations [address] [place] [address] [facility]S cott [facility] Fam Res Tm Green) [address] [place] [address] [facility]Sco tt [facility] Fam Res Tm Green) TELE CONSULT [id number] Notes Entered by: DEJA MEDRANO 13 Oct 2012 0838 ------- ------- ------- ------- -- Lab results DEJA MEDRANO 10/[address] [place] [address] [facility]S cott [facility] Fam Res Tm Green) [address] [place] [address] [facility]Sco tt [facility] Fam Res Tm Green) OUTPATIENT [id number] [address] [place] [address] Keon BLISS/Scr MAHI Stevens 10/26 Released w/o Limitations [address] [place] [address] Keno [facility]S cott [facility] Fam Res Tm Green) [address] [place] [address] [facility]Sco tt [facility] FAMRES Tm Blue) TELE CONSULT [id number] Notes Entered by: ASHLEY MERIDA 27 Oct 2012 1550 ------- ------- ------- ------- -- Call back C-scope on - CARLIE Amador 10/27 Released to [facility] [address] [place] [address] [facility]S cott [facility] FAMRES Tm Blue) [address] [place] [address] [facility]Sco tt [facility] Fam Res Tm Green) OUTPATIENT [id number] thumb pain - [id number] TAMMY MARTIN 12/14 Released w/o Limitations [address] [place] [address] [facility]S cott [facility] Fam Res Tm Green) [address] [place] [address] [facility] Fam Res Tm Red) OUTPATIENT [id number] becky deluca [id number] TAMMY MARTIN 10/27 Released w/o Limitations [address] [place] [address] [facility])([facility] Fam Res Tm Red) [address] [place] [address] [facility] FAMRES Tm Blue) TELE CONSULT [id number] Notes Entered by: HONG WALTON 01 Nov 2013 1350 ------- ------- ------- ------- -- lab TAMMY MARTIN 11/[address] [place] [address] [facility] FAMRES Tm Blue) [address] [place] [address] [facility] Fam Res Tm Red) TELE CONSULT [id number] Notes Entered by: Moiz ONEAL 03 Apr 2014 0837 ------- ------- ------- ------- -- Med refill/ Derik yang/[phone] BALBIR MARIE 04/[address] [place] [address] [facility])([facility] Fam Res Tm Red) [address] [place] [address] [facility] Fam Res Tm Red) TELE CONSULT [id number] Notes Entered by: LINDA MONSALVE ELS 13 Aug 2014 1114 ------- ------- ------- ------- -- Lab Order Request //Max ch//[phone] PEDRO HERNÁNDEZ 08/[address] [place] [address] [facility])([facility] Fam Res Tm Red) [address] [place] [address] [facility])([facility] Fam Res Tm Red) OUTPATIENT [id number] medicat ion review/ /971.84 10 TAMMY MARTIN 08/30 Released w/o Limitations [address] [place] [address] [facility] Fam Res Tm Red) [address] [place] [address])([facility] Fam Res Tm Red) TELE CONSULT [id number] Notes Entered by: PATRICE BRASHER 15 Nov 2014 1543 ------- ------- ------- ------- -- Lab request /jesse gr/618. 971.840 9 PEDRO HERNÁNDEZ 11/[address] [place] [address])([facility] Fam Res Tm Red) [address] [place] [address])([facility] Fam Res Tm Red) OUTPATIENT [id number] annual check up/618. 971.841 0 TAMMY MARTIN 11/26 Released w/o Limitations [address] [place] [address])([facility] Fam Res Tm Red) [address] [place] [address])([facility] Fam Res Tm Red) TELE CONSULT [id number] Notes Entered by: AZALEA BOOTHE 11 Mar 2015 1432 ------- ------- ------- ------- -- Medicat ion renewal - Ticheno r - PEDRO HERNÁNDEZ 03/[address] [place] [address])([facility] Fam Res Tm Red) [address] [place] [address])([facility] Fam Res Tm Red) OUTPATIENT [id number] f/u on medicat ions 971.841 0 MITZY LORENZO 05/22 Released w/o Limitations [address] [place] [address])([facility] Fam Res Tm Red) [address] [place] [address])([facility] Fam Res Tm Red) TELE CONSULT [id number] Notes Entered by: CHAZ SERRANO 18 Jun 2015 1309 ------- ------- ------- ------- -- Med renewal and dose change/ ticheno r/ PEDRO HERNÁNDEZ 06/[address] [place] [address] Group [facility] ([facility]S shantel [facility] Fam Res Tm Red) [facility] Outpatient Encounter [id number] 11/22 [facility] N [facility] OFFICE O/P EST MOD 30 MIN [id number] Diagnos is: ICD-10- CM M25.569 Pain in unspeci fied knee MONIQUEELLEN AVENDAÑOA N 11/22 [facility] OFFICE O/P EST LOW 20 MIN [id number] Diagnos is: ICD-10- CM L94.0 Localiz ed sclerod ivan [morphe a] AB SABINE MARTÍNEZ 02/14 [facility] Outpatient Encounter [id number] 04/12 [facility] OFFICE O/P EST MOD 30 MIN [id number] Diagnos is: ICD-10- CM M17.0 Vani henry primary osteoar thritis of knee RASHAUN CORTEZ 04/12 [facility] Outpatient Encounter [id number] JOSEPH FINLEY L 08/31 [facility] Outpatient Encounter [id number] MONIQUEELLEN VUONG N 09/01 [facility] Outpatient Encounter [id number] 10/11 [facility] Outpatient Encounter [id number] JOSEPH FINLEY RREL L 11/21 [facility] N [facility] SYNCH AUDIO-ONLY EST MOD 30 [id number] Diagnos is: ICD-10- CM E78.5 Hyperli pidemia , unspeci ELLEN Catherine N 11/23 [facility] OFFICE O/P EST MOD 30 MIN [id number] Diagnos is: ICD-10- CM 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 Procedure Procedure Type Code Date Perfomer Comments Sourc e No data available for this section Ambul[facility] ry Pharmacy TELE ASSESS & MGT SRV PROV QUAL NONPHYS HLTH CARE PRO TO EST PAT,PARENT,GUARD NOT ORIG REL ASSESS & MGT SRV PROV W/IN PREV 7 DAYS NOR LEAD ASSESS & MGT SRV/PX W/IN NXT 24 HR/SOON APT;5-10 MIN MED DIS 06/18/2015 [facility] TELE ASSESS & MGT SRV PROV QUAL NONPHYS HLTH CARE PRO TO EST PAT,PARENT,GUARD NOT ORIG REL ASSESS & MGT SRV PROV W/IN PREV 7 DAYS NOR LEAD ASSESS & MGT SRV/PX W/IN NXT 24 HR/SOON APT;5-10 MIN MED DIS 03/11/2015 [facility] TELE ASSESS & MGT SRV PROV QUAL NONPHYS HLTH CARE PRO TO EST PAT,PARENT,GUARD NOT ORIG REL ASSESS & MGT SRV PROV W/IN PREV 7 DAYS NOR LEAD ASSESS & MGT SRV/PX W/IN NXT 24 HR/SOON APT;5-10 MIN MED DIS 11/15/2014 [facility] TELE ASSESS & MGT SRV PROV QUAL NONPHYS HLTH CARE PRO TO EST PAT,PARENT,GUARD NOT ORIG REL ASSESS & MGT SRV PROV W/IN PREV 7 DAYS NOR LEAD ASSESS & MGT SRV/PX W/IN NXT 24 HR/SOON APT;5-10 MIN MED DIS 08/13/2014 [facility] COLONOSCOPY, FLEXIBLE; WITH BIOPSY, SINGLE OR MULTIPLE 10/26/2012 [facility] Non-Physician Phone Call To Patient/Provider Brief (5-10min) Non-Physician Phone Call To Patient/Provide r Brief (5-10min) [id number] 06/18/2015 MITZY LORENZO Non-Physician Phone Call To Patient/Provider Brief (5-10min) Non-Physician Phone Call To Patient/Provide r Brief (5-10min) [id number] 03/11/2015 MITZY LORENZO [facility] Non-Physician Phone Call To Patient/Provider Brief (5-10min) Non-Physician Phone Call To Patient/Provide r Brief (5-10min) [id number] 11/15/2014 PEDRO HERNÁNDEZ Non-Physician Phone Call To Patient/Provider Brief (5-10min) Non-Physician Phone Call To Patient/Provide r Brief (5-10min) [id number] 08/13/2014 PEDRO HERNÁNDEZ Colonoscopy For Forceps Biopsy 10/26/2012 MAHI CONKLIN [facility] Social History Combined list of available smoking, tobacco, and other social history from Department of Defense and Veterans Affairs facilities. Social History Type Response Date Comment Sourc e Tobacco smoking status NHIS VA-TOBACCO NEVER USED 02/17/2023 [facility] History of tobacco use VA-TOBACCO NEVER USED 02/18/2022 [facility] History of tobacco use VA-TOBACCO NEVER USED 04/10/2020 [facility] History of tobacco use VA-TOBACCO NEVER USED 02/12/2020 [facility] History of tobacco use VA-TOBACCO NEVER USED 03/17/2018 [facility] History of tobacco use LIFETIME NON-USER OF TOBACCO 06/17/2017 [facility] History of tobacco use LIFETIME NON-USER OF TOBACCO 11/03/2016 [facility] History of tobacco use LIFETIME NON-USER OF TOBACCO 10/04/2006 [facility] This section is an empty social history section. [facility] Assessment and Plan Combined list of future care activities from Department of Defense and Veterans Affairs facilities (e.g., assessment and plan notes, appointments, orders, and referrals). Additional future care activities may be listed in the Plan of Care section. Result Assessment and Plan Date Source Assessment and Plan No data available for this section 05/22/2025 Ambulatory Pharmacy Plan of Care List of future care activities from [facility] facilities. Additional future care activities may be listed in the Assessment and Plan section. Date/Time Care Activity Care Activity Detail Facili ty 06/27/2025 AMBULATORY - SURGERY AMBULATORY - SURGERY [facility] Advance Directives List of completed, amended, or rescinded Advance Directives on record at [facility] facilities. An actual copy of the Directive is not included. Date Advance Directive Provider Source 11/04/2016 ADVANCE DIRECTIVE DISCUSSION KASSIE KUHN [facility] Functional Status Combined list of recent functional and cognitive assessments recorded at Department of Defense and [facility] Functional [place] Measurement (FIM) Scale: 1 = Total Assistance (Subject = 0% +), 2 = Maximal Assistance (Subject = 25% +), 3 = Moderate Assistance (Subject = 50% +), 4 = Minimal Assistance (Subject = 75% +), 5 = Supervision, 6 = Modified [place] (Device), 7 = Complete [place] (Timely, Safely). Assessment Date/Time Source Assessment Type Assessment Skill Assessment Score Assessment Details No data available for this section
[2025-05-22 07:39] LABS: Alanine Aminotransferase 33 U/L (6-50); Albumin Level 4.3 g/dL (3.5-5.1); Alkaline Phosphatase 52 U/L (38-126); Anion Gap 6 mmol/L (4-12); Aspartate Amino Transferase 31 U/L (17-59); Bilirubin,Total 0.4 mg/dL (0.2-1.3); Blood Urea Nitrogen 18 mg/dL (9-20); Calcium 9.2 mg/dL (8.4-10.2); Carbon Dioxide 29 mmol/L (22-30); Chloride 105 mmol/L (98-107); Cholesterol 137 mg/dL (0-200); Estimated Glomerular Filt Rate > 60; Glucose 108 mg/dL (65-110); HDL Direct 32 mg/dL; Potassium 4.4 mmol/L (3.4-5.0); Sodium 140 mmol/L (137-145); Total Protein 7.5 g/dL (6.3-8.2); Triglycerides 174 mg/dL (<150)
== END 2025-05-22 06:52 | disposition home or self-care (01) ==
PROVIDERS: PCP Family Medicine; Visit Provider Family Medicine
DX: E78.00 Pure hypercholesterolemia, unspecified (principal)
CPT/HCPCS: 36415; 80053; 80061

== ENCOUNTER 2025-08-29 10:02 | Outpatient (CLI) | payer OTHER, MEDICARE, SELFPAY ==
--- NOTE | 2025-08-29 10:40 | NEURO_ITS ---
Impression: # Complains of numbness of feet. ? # Axonal Sensorimotor Neuropathy with neurogenic changes on Needle/ EMG exam, more distally. Nerve Conduction Studies ?Stim Site NR Peak (ms) P-T Amp (?V) Site1 Site2 Delta-P (ms) Dist (cm) Harshal (m/s) Left Sup Fibular Anti Sensory (Ant Lat Mall) 14 cm ? 3.9 4.2 14 cm Ant Lat Mall 3.9 16.0 41 Right Sup Fibular Anti Sensory (Ant Lat Mall)??? NO RESPONSE 14 cm NR 14 cm Ant Lat Mall 16.0 Left Sural Anti Sensory (Lat Mall)??? NO RESPONSE Calf NR Calf Lat Mall 16.0 Right Sural Anti Sensory (Lat Mall)??? NO RESPONSE Calf NR Calf Lat Mall 16.0 ?Stim Site NR Onset (ms) O-P Amp (mV) Site1 Site2 Delta-0 (ms) Dist (cm) Harshal (m/s) Left Peroneal Motor (Vastus Med) Ankle ? 4.2 4.7 Popit Ankle 10.4 44.0 42 Popit ? 14.6 3.8 Right Peroneal Motor (Vastus Med) Ankle ? 4.1 2.4 Popit Ankle 9.8 44.0 45 Popit ? 13.9 4.1 Left Tibial Motor (Abd Matamoros Brev) Ankle ? 5.1 3.5 Knee Ankle 10.2 44.0 43 Knee ? 15.3 2.9 Right Tibial Motor (Abd Matamoros Brev) Ankle ? 5.3 1.6 Knee Ankle 10.6 47.0 44 Knee ? 15.9 1.8 F Wave Studies ?NR F-Lat (ms) L-R F-Lat (ms) Left Peroneal (Mrkrs) (EDB) ? 57.79 1.11 Right Peroneal (Mrkrs) (EDB) ? 56.68 1.11 Left Tibial (Mrkrs) (Abd Hallucis) ? 64.06 0.31 Right Tibial (Mrkrs) (Abd Hallucis) ? 63.76 0.31 Electromyography ?Side Muscle Nerve Root Ins Act Fibs Amp Dur Recrt Comment Right AntTibialis Dp Br Fibular L4-5 Nml Nml Nml Nml Nml Left AntTibialis Dp Br Fibular L4-5 Nml Nml Nml Nml Nml Right Ext Dig Brev Dp Br Fibular L5, S1 Nml Nml Decr >12ms +1 Left Ext Dig Brev Dp Br Fibular L5, S1 Nml Nml Decr >12ms +1 Right Fibularis Long Sup Br Fibular L5-S1 Nml Nml Decr >12ms Nml Left Fibularis Long Sup Br Fibular L5-S1 Nml Nml Decr >12ms Nml Right Flex Dig Long Tibial L5-S2 Nml Nml Decr >12ms +1 Left Flex Dig Long Tibial L5-S2 Nml Nml Decr >12ms +1 Right Gastroc Tibial S1-2 Nml Nml Nml Nml Nml Left Gastroc Tibial S1-2 Nml Nml Nml Nml Nml Right QuadratusFem QuadFemoris L4-5, S1 Nml Nml Nml >12ms Nml Left QuadratusFem QuadFemoris L4-5, S1 Nml Nml Nml >12ms Nml
== END 2025-08-29 10:03 | disposition home or self-care (01) ==
LOC: ANHNEURO 10:04
PROVIDERS: PCP Family Medicine; Visit Provider Family Medicine
DX: M79.2 Neuralgia and neuritis, unspecified (principal)
CPT/HCPCS: 95886; 95910